=== PATIENT | male | born 1945 | race Caucasian/White ===

== ENCOUNTER 2023-01-18 06:34 | Emergency (ER) | payer OTHER, SELFPAY ==
[2023-01-18] VITALS (109 sets, daily range): BP systolic 105–135; BP diastolic 51–85; PULSE 66–97; RESP 12–33; TEMP 36.7; O2SAT 91–97
--- NOTE | 2023-01-18 07:40 | W.ED.GENAD ---
Discharge Plan Disposition Patient Disposition: Home Discharge Details Clinical Impression: Immunization, tetanus-diphtheria, Thrombocytopenia, Alcohol abuse with intoxication with complication, Macrocytic anemia, Hypomagnesemia, Hypernatremia, First degree AV block, Infiltrate of upper lobe of left lung present on imaging study Primary Care Provider: Patti,Local ED Provider: Abdon Logan Home Meds and New Rx's Prescriptions: New doxycycline hyclate 100 mg capsule 100 mg PO BID Qty: 7 0RF Discharge Instructions Instructions: Abuse of Alcohol (ED) Additional Instructions: You are seen in the emergency department following a fall. Your CAT scan showed no sign of any bleeding in your head. Your chest CT showed concern for a possible pneumonia versus infiltrate in your left upper lung for which you are receiving an antibiotic. As we discussed, there is a possibility that this area could be an early abnormality that is not the result of an infection. Please follow-up with your primary care provider in the next week for reassessment. If you develop worsening shortness of breath or any recurrent falls please return to the emergency department. Your antibiotics have been sent down to help to [facility]. Discharge Data Discharge Date/Time-TO BE ENTERED AT DEPARTURE: 01/18/23 12:16 Medical Decision Making <Patience Rosales DO - Last Filed: 01/18/23 08:22> 77-year-old male visiting family from [place] with history of chronic alcoholism, hypertension, hyperlipidemia, left hip replacement presents after brought in by EMS for multiple falls, some unwitnessed while intoxicated since yesterday. Patient is intoxicated on evaluation. He is nontoxic-appearing. He has a right elbow skin tear but no extremity pain with range of motion or deformity. His chest and abdomen are nontender. He has no midline spinal tenderness. He has no obvious focal deficits. Differential diagnosis includes multiple falls in the setting of intoxication, encephalopathy, dehydration, electrolyte abnormality, UTI. Will obtain screening labs and CT head, cervical spine, chest abdomen and pelvis with thoracic and lumbar recons to rule out any acute trauma as he has had unwitnessed falls. Temperature not yet recorded, will obtain. Will give fluid bolus, Boostrix. The initial EMS report had indicated suicidal ideation. Per discussion with ex- in the ED, she reported that patient must be suicidal if he is drinking that much . Ex- and son report that patient has never expressed suicidal ideation and patient denies this at this time. Patient initially was placed in paper clothes which were removed and he was placed in a gown. Case endorsed oncoming provider to follow-up on labs and imaging and final disposition. Discussed with family that if work-up negative, they feel comfortable taking him home and driving him to [place]. Discussed that he will need follow-up with PCP and potential referral to student success coach or rehab. Medical Records Medical records reviewed: Yes I reviewed the patient's medical records. HPI <Patience Rosales DO - Last Filed: 01/18/23 08:22> General Mode of arrival: ambulatory. Date/Time Provider Initiated Documentation: 01/18/23 06:50. Limitations to Documentation: no limitations. Information obtained by: patient. HPI Narrative: Patient is a 77-year-old male with a history of chronic alcoholism, hypertension, hyperlipidemia with left hip replacement presents after family called EMS for multiple falls today while intoxicated. Patient's ex- and his son John reports that patient drove here from [place] where he lives on Tuesday to visit. They state he has a chronic alcoholic and has been drinking all weekend. Patient reports that he had 2 beers and 3 ounces of vodka since last night but family suspects he has had much more. He had been staying at a B near them but stayed with his son John in [place] last night. Patient's son reports that patient had an unwitnessed fall yesterday and EMS was called to the home where patient was evaluated but not brought to the ED. Family reports that they are also concerned about his left hip as he had a hip replacement 2 years ago and they want to make sure it is okay. Patient denies any hip pain at this time. When asked patient why he is here today he states I don't know . Family is unsure of his regular medications but reports that they think he is on a blood pressure and cholesterol medication. They do not think he is on any blood thinners. On phone call with family from [place] while in the ED, they reported that patient drinks possibly half bottle of whiskey and a few beers daily. Patient denies any acute symptoms of headache, dizziness, chest pain, difficulty breathing, abdominal pain, extremity pain. Related Data Home Medications Medication Instructions Recorded Confirmed doxycycline hyclate 100 mg capsule 100 mg PO BID #7 caps 01/18/23 Previous Rx's Medication Instructions Recorded doxycycline hyclate 100 mg capsule 100 mg PO BID #7 caps 01/18/23 General Stated Complaint: PsychEval MASOUD: 2 Review of Systems <Patience Rosales DO - Last Filed: 01/18/23 08:22> All systems reviewed & are unremarkable except as noted in HPI and below Constitutional Constitutional: Reports as per HPI, Denies chills and Denies fever(s) Eyes Eyes: Denies blurry vision ENT Ears, Nose, Mouth, and Throat: Denies dizziness, Denies sore throat and Denies throat swelling Cardiovascular Cardiovascular: Denies chest pain and Denies dyspnea Respiratory Respiratory: Denies cough and Denies dyspnea Gastrointestinal Gastrointestinal: Denies abdominal pain, Denies diarrhea and Denies vomiting Genitourinary Genitourinary: Denies hematuria and Denies dysuria Musculoskeletal Musculoskeletal: Denies back pain and Denies numbness Integumentary/Breasts Skin/Breast: Denies lesions and Denies rash Neurologic Neurologic: Denies dizziness, Denies localized weakness and Denies numbness Allergic/Immunologic Allergic/Immunologic: Denies throat swelling PFSH <Patience Rosales DO - Last Filed: 01/18/23 08:22> All Active Problems (Updated 01/18/23 @ 11:32 by Abdon Logan MD) Immunization, tetanus-diphtheria (Acute) Thrombocytopenia (Chronic) Alcohol abuse with intoxication with complication (Acute) Macrocytic anemia (Acute) Hypomagnesemia (Acute) Hypernatremia (Acute) First degree AV block (Acute) Infiltrate of upper lobe of left lung present on imaging study (Acute) Medical History (Updated 01/18/23 @ 11:32 by Abdon Logan MD) Dysphagia Esophageal stricture HTN (hypertension) Hx of hyperlipidemia Surgical History (Updated 01/18/23 @ 08:06 by Patience Rosales DO) History of hip replacement Social History Smoking/Tobacco Use Status: Never Smoking risk assessment performed?: Yes Alcohol Intake: current Alcohol Intake frequency: 3 or more drinks per day Alcohol type: beer Drug use: Never Substance use type: does not use Do you feel safe at home: Yes Do you feel safe in your relationship?: Yes Additional Social history: Pt lives in [facility], has been visiting family in [place] for quite some time Exam <Patience Rosales DO - Last Filed: 01/18/23 08:22> Const General: cooperative, no acute distress and intoxicated appearing Orientation: alert, awake and oriented x3 HENMT Head: normal to inspection Face and sinus: normal facial exam Eyes General: appearance normal, both eyes and all related structures Pupils: PERRL EOM: EOM intact bilaterally Neck Neck: normal visual inspection and No submandibular swelling Lymphatic: no lymphadenopathy noted Chest Chest: normal inspection of the chest and no tenderness Resp Effort & Inspection: normal respiratory effort and able to speak in complete sentences Auscultation: clear to auscultation bilaterally Cardio Rate: regular rate Rhythm: regular rhythm GI Inspection: normal to inspection Palpation: soft, not firm, not rigid and nontender Auscultation: hypoactive bowel sounds Male General Exam: Yes normal external exam Back/Spine/Pelvis Cervical Spine: No cervical spinal tenderness Thoracic/Lumbar Spine: thoracic and lumbar spine normal to inspection, No thoracic spinal tenderness and No lumbar spinal tenderness Pelvis: no pain with anterior-posterior compression Skin General skin exam: no rashes or lesions noted Neuro General: patient alert, patient awake, moves all extremities and no meningeal signs Cognition: normal cognition Speech: abnormal speech slurred (Intoxicated appearing) Motor: muscle tone normal throughout Sensory Exam: no sensory deficits noted Extrem General: normal to inspection and full ROM Shoulder/upper arm images: 1. 3 cm skin tear. Bleeding controlled. Surrounding ecchymosis. Other: Full range of motion of bilateral upper and lower extremities without evidence of deformity or significant pain. No pain in right elbow with range of motion. Psych Appearance: grossly normal Mental Status: mental status grossly normal Speech and Movement: speech and movement normal Affect: normal affect Course <Patience Rosales, - Last Filed: 01/18/23 08:22> Vital Signs Vital signs: Vital Signs Pulse 97 H 01/18/23 06:33 Respiratory Rate 20 01/18/23 06:33 Blood Pressure 135/85 01/18/23 06:33 Pulse Oximetry 97 01/18/23 06:33 Pulse 97 H 01/18/23 06:33 Respiratory Rate 20 01/18/23 06:33 Respiratory Effort Normal, Non-Labored 01/18/23 06:42 Blood Pressure 135/85 01/18/23 06:33 Blood Pressure Position Sitting 01/18/23 06:33 Pulse Oximetry 97 01/18/23 06:33 Oxygen Delivery Method Room Air 01/18/23 06:33 Oxygen Flow Rate 0 01/18/23 06:33 Pain Level 3 01/18/23 06:33 Sign Out <Patience Rosales DO - Last Filed: 01/18/23 08:22> Sign Out Data: Sign Out Comment: Patient visiting family from [place]. Brought in by EMS after family called for multiple falls, some unwitnessed, while intoxicated. Follow-up on labs and imaging. If work-up negative, family will drive patient home to [place] and arrange for follow-up with PCP and potential rehab. Last updated by Patience Rosales DO at 01/18/23 07:55 PAWSS <Patience Rosales DO - Last Filed: 01/18/23 08:22> Have you Been Recently Intoxicated or Drunk Within the Last 30 days?: Yes Have you Ever Experienced Previous Episodes of Alcohol Withdrawal?: Yes Have you ever Experienced Withdrawal Seizures?: No Have you ever Experienced Delirium Tremens(DT)s?: Yes Have you ever undergone Alcohol Rehabilitation Treatment (i.e, inpt ot outpatient treatment programs)?: No Have you ever Experienced Blackouts?: Yes Have you ever Combined Alcohol with other Downers within the last 90 days?: Unable to Obtain Have you ever Combined Alcohol with any other Substance of Abuse during the last 90 days?: Unable to Obtain Positive Blood Alcohol level on Presentation? [PCS.BAL]: Unable to Obtain Evidence of Increased Autonomic Activity (i.e. HR>120, tremor, sweating, agitation, nausea)?: No Result: 4 <Abdon Logan MD - Last Filed: 01/23/23 18:57> Result: 4
--- NOTE | 2023-01-18 07:45 | DI.CT_ITS ---
Exam(s) CT CHEST/ABD/PEL W EXAM: CT CHEST/ABD/PEL W CLINICAL HISTORY: s/p fall, r/o acute fx/acute abd abnormality. TECHNIQUE: Imaging Protocol: Axial computed tomography images with coronal and sagittal reformatted images were created and reviewed CONTRAST MATERIAL: Intravenous: Omnipaque 350 Contrast volume:100 ml Oral: None COMPARISON: No exams were available for comparison FINDINGS: CHEST: LUNGS: There is scarring in both lung apices, more so on the left. Also calcified granulomas noted i n the lung sarmiento.. In the anterior segment left upper lobe there is a 1.5 x 1.2 cm nodular infiltra te evident. No other focal infiltrates in the upper lobe. With some mild infiltrate in the left low er lobe. Calcified granulomas noted in left lung base. Also mild infiltrate in the left lung base. No pleural effusions. In the opposite-right lung are no significant focal findings. Also no pleural fluid. MEDIASTINUM: There is no hilar nor mediastinal adenopathy. No sternal fracture or mediastinal hematom a. Thyroid appears unremarkable. CARDIAC: Heart size is normal. There is no pericardial effusion.Caliber of the thoracic aorta is wit hin normal limits. OSSEOUS: There are healed bilateral rib fractures. No obvious acute appearing rib fractures. No herman tebral fractures evident.. ABDOMEN: There is no ascites. LIVER: Liver is hypodense implying steatosis. No discrete focal hepatic lesions identified. GALLBLADDER/BILIARY: Gallbladder is blurred by motion artifact. Subtle density in the fundus of the gallbladder may represent polyp or small calculi. There is no obvious gallbladder wall edema. CBD i s not dilated. PANCREAS: Blurred by motion artifact but no obvious mass. No ductal dilatation. SPLEEN: Spleen is not enlarged. There are no intrasplenic lesions. No laceration. Splenic and lillian l veins are patent. ADRENALS: There is a small nodular density in the genu of the left adrenal gland measuring approximat sarita 9 x 9 mm. Possibly exaggerated by motion artifact. KIDNEYS: No calculi nor hydronephrosis. No solid renal masses. No evidence of renal laceration or sub capsular hematoma. No cysts evident. ABDOMINAL AORTA: Abdominal aorta is not enlarged. LYMPH NODES: There is no retroperitoneal nor paraaortic adenopathy. ABDOMINAL WALL: No evidence of significant anterior abdominal wall nor inguinal hernia. GI: There is no evidence of bowel obstruction.No free air. No evidence of mesenteric nor bowel wall hematoma. PELVIS: LYMPH NODES: There is no intrapelvic nor inguinal adenopathy. GI: No evidence of appendicitis.There is extensive sigmoid diverticulosis. No obvious acute divertic ulitis. URINARY BLADDER: No calculi nor masses evident REPRODUCTIVE: Prostate size normal. OSSEOUS: Left hip prosthesis. No obvious fractures. No significant osseous lesions. IMPRESSION: 1. No significant acute trauma sequelae in the chest, abdomen, and pelvis. 2. There is an area of focal infiltrate in the anterior segment of the left upper lobe measuring 1.5 x 1.2 cm. There is also some mild infiltrate in the left lung base posterior basal segment. No pleu ral effusions. There are benign calcified granulomas both lung sarmiento. 3. Healed bilateral rib fractures. No acute fractures evident. 4. Small densities in the gallbladder fundus which may be polyps or calculi. No obvious evidence of acute cholecystitis. CBD is not dilated. 5. There is extensive sigmoid diverticulosis but no evidence of acute diverticulitis. Left hip prosthesis noted. No pelvic fractures Report called by myself to ER physician. RADIATION DOSE DELIVERED: 1454.01 mGy.cm Total DLP DATA REPOSITORY: All CT scans at this facility are submitted to the National Radiology Data Registry (NRDR) Dose Index Registry (DIR) with the [employer] (A[employer]). RADIATION OPTIMIZATION: All CT scans at this facility use at least one of these dose optimization te chniques: automated exposure control; mA and/or kV adjustment per patient size (includes targeted exa ms where dose is matched to clinical indication); or iterative reconstruction.
--- NOTE | 2023-01-18 07:45 | DI.CT_ITS ---
Exam(s) CT HEAD CERVICAL SPINE WO EXAM: CT HEAD CERVICAL SPINE WO CLINICAL HISTORY: falls, intoxication, r/o bleed/fx. TECHNIQUE: Imaging Protocol: Axial computed tomography images with coronal and sagittal reformatted images were created and reviewed COMPARISON: No exams were available for comparison FINDINGS: BRAIN: There are no skull fractures nor fluid in the visualized paranasal sinuses. There is no evidence of intracranial hemorrhage, mass effect, or shift of midline structures. There are no extra-axial fluid collections. The ventricles are not enlarged or shifted and there is no blo od within the ventricular system nor within the basal cisterns. No periventricular hypodensity consistent with chronic small vessel disease. CERVICAL SPINE: There is no evidence of acute fracture nor listhesis. No significant prevertebral soft tissue swelli ng. There chronic advanced multilevel disc space narrowing. There is facet arthropathy at multiple level s no facet malalignment. There is no significant facet joint malalignment. No significant osseous lesions evident. IMPRESSION: No acute intracranial findings on this noninfused CT scan of the brain.Chronic small-vessel white mat ter ischemic changes. No hemorrhage. Chronic degenerative cervical spine changes but no evidence of cervical spine fracture, malalignment, nor acute compromise of the cervical spinal canal. Called to ER provider. RADIATION DOSE DELIVERED: 1,315.52mGy.cm Total DLP DATA REPOSITORY: All CT scans at this facility are submitted to the National Radiology Data Registry (NRDR) Dose Index Registry (DIR) with the [employer] (ACR). RADIATION OPTIMIZATION: All CT scans at this facility use at least one of these dose optimization te chniques: automated exposure control; mA and/or kV adjustment per patient size (includes targeted exa ms where dose is matched to clinical indication); or iterative reconstruction.
--- NOTE | 2023-01-18 07:46 | DI.CT_ITS ---
Exam(s) CT THORACIC LUMBAR SPINE REC EXAM: CT THORACIC LUMBAR SPINE REC CLINICAL HISTORY: s/p fall, r/o fx TECHNIQUE: COMPARISON: CT CT CHEST/ABD/PEL W from 01/18/2023 FINDINGS: CT THORACIC SPINAL COLUMN: No evidence fractures nor listhesis. Facet joints unremarkable. No facet malalignment. Multilevel disc space narrowing. LUMBOSACRAL SPINAL COLUMN: No evidence of acute fracture or listhesis. Multilevel disc space narrowi ng at the lower 3 levels. No facet joint fractures nor malalignment evident. No obvious sacral frac tures. No coccyx fractures. IMPRESSION: No evidence of acute fractures in the thoracic and lumbar spinal columns. Listhesis. No facet malal ignment. No acute compromise of the spinal canal.
[2023-01-18] MEDS: Normal Saline 1,000 ML 1000 ML IV (07:52)
[2023-01-18 08:08] LABS: Abs Immature Grans 0.02 10^3/uL (0.0-0.06); Absolute Basophil Count 0.03 10^3/uL (0.0-0.2); Absolute Eosinophil Count 0.09 10^3/uL (0.0-0.7); Absolute Lymphocyte Count 1.45 10^3/uL (1.2-3.4); Absolute Monocyte Count 0.73 10^3/uL (0.1-0.8); Absolute Neutrophil Count 3.21 10^3/uL (1.2-6.7); Basophils % 0.5; Eosinophils % 1.6; HCT 39.9 % (40.0-50.0); HGB 13.1 g/dL (13.5-17.5); Immature Grans % 0.4; Lymphocytes % 26.2; MCH 34.5 pg (27.0-33.0); MCHC 32.8 % (32.0-36.0); MCV 105 fL (80-95); MPV 9.6 fL (8.0-11.0); Monocytes % 13.2; Neutrophils % 58.1; Platelet Count 110 10^3/uL (130-400); RDW 13.4 % (11.8-14.1); RDW-SD 51.4 fL; WBC 5.53 10^3/uL (4.4-10.8)
--- NOTE | 2023-01-18 08:13 | W.EDPROG ---
Date of service: 01/18/23 Time of Service: 08:14 Medical Decision Making I received signout on this 77-year-old male with a history of alcohol abuse visiting locally from [place]. He was drinking alcohol last night. He was attempting to get into the car and he fell. He is pending a pepe scan, and ECG and reassessment for clinical sobriety. There was initially a note about suicidal ideation but patient denied suicidal ideation. Given a skin tear will update his tetanus status. 8:22 AM Labs significant for thrombocytopenia and mild macrocytic anemia. No leukocytosis. 9:35 AM Negative troponin. Ethanol returned markedly elevated at 416 mg/dL. Urine drug screen negative. Comprehensive metabolic panel with mild anion gap and mild hyperglycemia but not consistent with DKA. Mildly elevated LFTs. Normal creatinine. Mild hypernatremia. Mild hypomagnesemia. For which patient will receive IV repletion. Lipase not consistent with pancreatitis. Urinalysis with trace ketones but nitrite and leukoesterase negative. No hematuria. [address] head and cervical spine negative.ECG showing narrow complex normal sinus rhythm at a rate of 87 with first-degree AV block and a GA interval of 200 ms. Mildly prolonged QTc at [address] segment abnormalities. T wave flattening in aVL. Low voltage. 11:[address] scan patient was found to have local infiltrate in his left upper lobe. We treat with doxycycline for community-acquired pneumonia. We will have health community cultural development officer Chau reach out to case management to have primary care follow-up with patient as it is certainly possible that these infiltrates could represent an early malignancy based on the patient's age. I met with the patient and explain the CT findings. Pt's son will help him return home. 9:58pm Pt ambulated & tolerated po in the ED. He was discharged with his son. Sign Out Sign Out Data: Sign Out Comment: Patient visiting family from [place]. Brought in by EMS after family called for multiple falls, some unwitnessed, while intoxicated. Follow-up on labs and imaging. If work-up negative, family will drive patient home to [place] and arrange for follow-up with PCP and potential rehab. Last updated by Patience Rosales DO at 01/18/23 07:55 Discharge Plan Disposition Patient Disposition: Home Discharge Details Clinical Impression: Immunization, tetanus-diphtheria, Thrombocytopenia, Alcohol abuse with intoxication with complication, Macrocytic anemia, Hypomagnesemia, Hypernatremia, First degree AV block, Infiltrate of upper lobe of left lung present on imaging study Primary Care Provider: Patti,Local ED Provider: Abdon Logan [place] Meds and New Rx's Prescriptions: New doxycycline hyclate 100 mg capsule 100 mg PO BID Qty: 7 0RF Discharge Instructions Instructions: Abuse of Alcohol (ED) Additional Instructions: You are seen in the emergency department following a fall. Your CAT scan showed no sign of any bleeding in your head. Your chest CT showed concern for a possible pneumonia versus infiltrate in your left upper lung for which you are receiving an antibiotic. As we discussed, there is a possibility that this area could be an early abnormality that is not the result of an infection. Please follow-up with your primary care provider in the next week for reassessment. If you develop worsening shortness of breath or any recurrent falls please return to the emergency department. Your antibiotics have been sent down to help to [facility]. Discharge Data Discharge Date/Time-TO BE ENTERED AT DEPARTURE: 01/18/23 12:16
--- NOTE | 2023-01-18 08:15 | RT.EKG_ITS ---
APPROVED REPORT Exam: Resting ECG Reason for Exam: sob Patient Location: E HR:87 bpm ECG Measurements Heart Rate 87 AXIS FL 200 P 59 QRSd 97 QRS -2 QT 409 T 48 QTc 492 Conclusion Sinus rhythm...normal P axis, V-rate 60- 99 Low voltage, extremity leads...all extremity leads <0.5mV Narrow complex normal sinus rhythm at a rate of 87 with first-degree AV block and a FL interval of 20 0 ms. Mildly prolonged QTc at [address] segment abnormalities. T wave flattening in aVL. Low voltage. No prior for comparison.
[2023-01-18] MEDS: Normal Saline - Diluent 50 ML VIAL IJ (08:21)
[2023-01-18] MEDS: Omnipaque 350 MG/ML 500 ML BTL-Imaging package 100 ML IJ (08:22)
[2023-01-18 08:26] LABS: ALT 14 U/L (16-63); AST 30 U/L (15-37); Albumin 3.4 g/dL (3.4-5.0); Alkaline Phosphatase 124 U/L (46-116); Anion Gap 12.1 mmol/L (3-11); BUN 8 mg/dL (7-18); Bilirubin, Total 0.5 mg/dL (0.2-1.0); CO2 29.9 mmol/L (21.0-32.0); CREATININE 0.7 mg/dL (0.70-1.30); Calcium 8.7 mg/dL (8.5-10.1); Chloride 106 mmol/L (98-107); Estimated GFR 95.49 (mL/min/1.73m2); Glucose 112 mg/dL (74-106); Lipase 74 U/L (16-77); Magnesium 1.4 mg/dL (1.8-2.4); Potassium 3.9 mmol/L (3.5-5.1); Sodium 148 mmol/L (136-145); Total Protein 7.8 g/dL (6.4-8.2); Troponin I < 50 ng/L (<or=60)
[2023-01-18 08:28] LABS: ETHANOL BLOOD 416.1 mg/dL (<10)
[2023-01-18 08:54] LABS: Bilirubin Negative (Negative); Blood Negative (Negative); Clarity Clear (Clear); Glucose Negative (Negative); Ketones Trace mg/dL (Negative); Leukocyte Esterase Negative (Negative); Nitrite Negative (Negative); pH 5.5 (5-8)
[2023-01-18 09:07] LABS: *AMPHETAMINES SCREEN URINE Negative (Negative); *BARBITURATES SCREEN URINE Negative (Negative); *BENZODIAZEPINES SCREEN URINE Negative (Negative); Cannabinoids THC Negative (Negative); Cocaine Screen,Urine Negative (Negative); METHADONE URINE SCREEN Negative (Negative); OPIATES URINE SCREEN Negative (Negative); Tricyclic Antidepressants Negative (Negative)
--- OUTSIDE RECORDS SUMMARY | 2023-01-18 10:06 | XMS_ITS | Continuity of Care Document ---
Author Name [facility] Address [address] [place] [address] Organization [facility] Address [address] [place] [address] Support Name Relationship Address Phone Kaylin Mandujano Primary Care Provider [address] [place] [address] Ruben Menendez Attending Provider [facility] [address], [address] [place] [address] Allergies, Adverse Reactions, Alerts No known allergies. Medications Active Medications Medication Dose Units Route Sig Qty Days Start Date St atus Acetaminophen [Tylenol] 650 MG PO EVERY 4 HOURS UT N For Mild Pain (1-3) December 05, 2018 Active Bisacodyl Suppository [Dulcolax Suppository] 10 MG UT DAILY PRN For 2n d agent for Constipation October 25, 2019 Active Docusate Sodium [Colace] 100 MG PO TWICE A DAY October 25, 2019 Active Sodium Phos Enema 133 ML UT DAILY P RN For 3rd agent for Constipation October 25, 2019 Active Magnesium Hydroxide [Milk Of Magnesia] 30 ML PO DAILY PRN For 1st agent for Constipation October 25, 2019 Active Oxycodone [Roxicodone] 5 MG PO EVERY 4 HOURS UT N For Moderate Pain (4-6) 15 October 25, 2019 Active Pantoprazole [Protonix] 40 MG PO DAILY@0630 October 25, 2019 Active Discontinued Medications Medication Dose Units Route Sig Qty Days Start Date Discontinued Date Status Acetaminophen [Tylenol] 325 MG PO EVERY 4 HOURS PRN For Mild Pain (1-3) August 22, 2018 December 05, 2018 Discontinued Erythromycin Ophth Oint [Ilotycin Ophth Oint] 1 APPL EACH EYE TWICE A DAY 1 5 August 22, 2018 December 05, 2018 Discontinued Folic Acid [Folate] 1 MG PO DAILY August 22, 2018 October 01, 2019 Discontinued Magnesium Oxide [Mag-Ox 400] 400 MG PO TWICE A DAY 0 August 22, 2018 October 01, 2019 Discontinued Multivitamin 1 TAB PO DAILY AugOctober 01, 2019 Discontinued Oxycodone [Roxicodone] 5 MG PO EVERY 4 HOURS PRN For Moderate Pain (4-6) 6 1 August 22, 2018 December 05, 2018 Discontinued Thiamine [Vitamin B1] 100 MG PO DAILY Decemb2017December 05, 2018 Discontinued Tramadol [Ultram] 50 MG PO ONCE DAILY AT BEDTIME December 05, 2018 October 01, 2019 Discontinued Celecoxib [Celebrex] 50 MG PO DAILY December 12, 2018 October 01, 2019 Discontinued Problem List Active Problems Medical Problem Onset Date Status Left thigh pain Active Sprain of left hip Active Macrocytic anemia Active Femur fracture Active Tuberculosis Active Hematuria Active Alcohol abuse Active Fall from standing Active Alcohol withdrawal Active Anemia Active Sinus tachycardia Active Conjunctivitis Active Dysphagia Active Leg fracture, left Active Gait disturbance Active Arthritis of left hip Active DJD (degenerative joint disease) Active Proteinuria Active Thrombocytopenia Active 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 Advance Directives Advance Directive Response Recorded Date/ Time Pt has Medical Orders for Li fe Sustaining Tx Form (MOLST)? No October 24, 2019 9:19pm Chief Complaint and Reason for Visit Encounter Admit Date Chief Complaint Reason for V isit Departed Clinical February 19, 2020 11:25am [facility] Discharge Instructions No known hospital discharge instructions. Hospital Discharge Medications Medication Dose Units Route Sig Qty Days Order Date Status Instructions Acetaminophen 325 MG PO EVERY 4 HOURS PRN For Mild Pain (1-3) August 22, 2018 Discontinued Erythromycin Ophth Oint 1 APPL EACH EYE TWICE A DAY 1 5 August 22, 2018 Discontinued Folic Acid 1 MG PO DAILY Dece2017 Discontinued Magnesium Oxide 400 MG PO TWICE A DAY 0 August 22, 2018 Discontinued Multivitamin 1 TAB PO DAILY Aug Discontinued Oxycodone 5 MG PO EVERY 4 HOURS PRN For Moderate Pain (4-6) 6 1 August 22, 2018 Discontinued Thiamine 100 MG PO DAILY Decembe r 2017 Discontinued Acetaminophen 650 MG PO EVERY 4 HOURS PRN For Mild Pain (1-3) December 05, 2018 Active Tramadol 50 MG PO ONCE DAILY AT BEDTIME December 05, 2018 Discontinued Celecoxib 50 MG PO DAILY December 12, 2018 Discontinued Bisacodyl Suppository 10 MG UT DAILY PRN For 2nd agent for Constipati on October 25, 2019 Active Docusate Sodium 100 MG PO TWICE A DAY October 25, 2019 Active Sodium Phos Enema 133 ML UT DAILY PRN For 3rd agent for Constipati on October 25, 2019 Active Magnesium Hydroxide 30 ML PO DAILY PRN For 1st agent for Constipati on October 25, 2019 Active Oxycodone 5 MG PO EVERY 4 HOURS PRN For Moderate Pain (4-6) 15 October 25, 2019 Active Pantoprazole 40 MG PO DAILY@0630 October 25, 2019 Active Encounters Encounter Facility Location Admit/Visit Date Discharge/Departure Date Attending Provider Departed Clinical [facility] February 19, 2020 11:25am February 19, 2020 11:26am Ruben Menendez Discharged Inpatient [facility] Acute Care Unit October 24, 2019 10:26pm October 25, 2019 1:50pm Codie Mcghee Functional Status No known functional status. Immunizations No known immunizations. Payers Payer Name Policy Type Covered Alliance Party Covered Alliance Party Id Relationship Subscriber Subscriber Id [facility] - Secondary Other NIK MELCHOR [id number] Self / Same As Patient NIK MELCHOR [id number] Aetna Medicare Advantage Commercial NIK MELCHOR [id number] Self / Same As Patient NIK MELCHOR [id number] Medicare A&B Medicare Primary NIK MELCHOR [id number] Self / Same As Patient NIK MELCHOR [id number] Self Pay Personal Payment (Menjivar - No Insurance) Other Facility Personal Payment (Menjivar - No Insurance) NIK MELCHOR [phone] Self / Same As Patient NIK MELCHOR [phone] Plan of Care No Known Plan of Care Information Social History Query Response Date Recorded Comment Lives With Sibling(s) October 25, 2019 5:59am Query Response Start Date Stop Date Smoking Status Former smoker Vital Signs No known vital signs results.
--- OUTSIDE RECORDS SUMMARY | 2023-01-18 10:06 | XMS_ITS | Continuity of Care Document ---
Author Name [facility] Address [address] [place] [address] Organization [facility] Address [address] [place] [address] Support Name Relationship Address Phone Nazia, Kaylin Primary Care Provider [address] [place] [address] Rafita Romero Emergency Provider Unknown Maryvai Codie Angeles Admit Provider [facility] [address] [place] [address] Codie Mcghee Attending Provider [facility] [address] [place] [address] Allergies, Adverse Reactions, Alerts No known allergies. Medications Active Medications Medication Dose Units Route Sig Qty Days Start Date St atus Acetaminophen [Tylenol] 650 MG PO EVERY 4 HOURS OK N For Mild Pain (1-3) December 05, 2018 Active Bisacodyl Suppository [Dulcolax Suppository] 10 MG OK DAILY PRN For 2n d agent for Constipation October 25, 2019 Active Docusate Sodium [Colace] 100 MG PO TWICE A DAY October 25, 2019 Active Sodium Phos Enema 133 ML OK DAILY P RN For 3rd agent for Constipation October 25, 2019 Active Magnesium Hydroxide [Milk Of Magnesia] 30 ML PO DAILY PRN For 1st agent for Constipation October 25, 2019 Active Oxycodone [Roxicodone] 5 MG PO EVERY 4 HOURS OK N For Moderate Pain (4-6) 15 October [...] 2019 Discontinued Multivitamin 1 TAB PO DAILY Dec ember 2017October 01, 2019 Discontinued Oxycodone [Roxicodone] 5 MG PO EVERY 4 HOURS PRN For Moderate Pain (4-6) 6 1 August 22, 2018 December 05, 2018 Discontinued Thiamine [Vitamin B1] 100 MG PO DAILY Decembe r 2017December 05, 2018 Discontinued Tramadol [Ultram] 50 MG [...] Hypokalemia Resolved Procedures Procedure Date Status XR hip pelvis LT min 2V October 24, 2019 comple levi EKG ED Electrocardiogram October 24, 2019 activ e EKG Electrocardiogram October 04, 2019 completed XR femur LT 2V October 02, 2019 completed Urine Culture October 01, 2019 completed XR hip pelvis LT min 2V October 01, 2019 complet ed Relevant Diagnostic Tests and/or Laboratory Data Laboratory Results Test Date/Time Result Interp. Ref. Range Result Co mment Add-On Test Request October 03, 2019 12:11am Added test White Blood Count October 25, 2019 6:00am 7.0 X10 3/uL 4.5-11.0 Red Blood Count October 25, 2019 6:00am 3.36 X10 6/uL Low 4.00-5.50 Hemoglobin October 25, 2019 6:00am 11.7 g/dl Low 12.0-17.0 Hematocrit October 25, 2019 6:00am 35.3 % 35.0-50.0 Mean Corpuscular Volume October 25, 2019 6:00am 105.1 fl High 80.0-100.0 Mean Corpuscular Hemoglobin October 25, 2019 6:00am 34.8 pg High 27.0-34.0 Mean Corpuscular Hemoglobin Concent October 25, 2019 6:00am 33.1 g/dl 31.0-36.0 Red Cell Distribution Width October 25, 2019 6:00am 11.6 % 11.5-15.0 Platelet Count October 25, 2019 6:00am 132 X10 3/uL Low 150-400 Immature Granulocyte % (Auto) October 25, 2019 6:00am 0.3 % Neutrophils (%) (Auto) October 25, 2019 6:00am 59.3 % Lymphocytes (%) (Auto) October 25, 2019 6:00am 21.1 % Monocytes (%) (Auto) October 25, 2019 6:00am 16.6 % Eosinophils (%) (Auto) October 25, 2019 6:00am 2.0 % Basophils (%) (Auto) October 25, 2019 6:00am 0.7 % Immature Granulocyte # (Auto) October 25, 2019 6:00am 0.02 X10 3/uL 0.00-0.09 Neutrophils # (Auto) October 25, 2019 6:00am 4.1 X10 3/uL 1.5-7.8 Lymphocytes # (Auto) October 25, 2019 6:00am 1.5 X10 3/uL 1.0-4.8 Monocytes # (Auto) October 25, 2019 6:00am 1.2 X10 3/uL High 0.0-0.8 Eosinophils # (Auto) October 25, 2019 6:00am 0.1 X10 3/uL 0.0-0.5 Basophils # (Auto) October 25, 2019 6:00am 0.1 X10 3/uL 0.0-0.2 Hemoglobin A1c October 25, 2019 6:00am 5.1 4.3-5.9 Estimated Average Glucose (eAG) October 25, 2019 6:00am 100 mg/dl Nucleated Red Blood Cells % October 25, 2019 6:00am 0.0 /100 WBC 0.0-0.0 Prothrombin Time October 25, 2019 6:00am 14.0 SEC 11.7-14.7 Prothromb Time International Ratio October 25, 2019 6:00am 1.1 Suggested INR targets for patients on Warfarin therapy. INDICATION TARGET INR -DVT or PE, Atrial Fibrillation 2.0 to 3.0 -Valvular disease(varies depending on 2.0 to 3.0 or location of valve, type of valve, and 2.5 to 3.5 risk factors). REFERENCE: The Seventh ACCP Conference on Antithrombotic and Thromblytic Therapy; evidence-based guidelines. Chest 2004; 126(Suppl); 163S-696S. Urine Color October 24, 2019 10:50pm Isa Urine Clarity October 24, 2019 10:50pm Clear Urine pH October 24, 2019 10:50pm 6.0 5.0-8.0 Urine Specific [place] October 24, 2019 10:50pm 1.020 1.003-1.03 0 Urine Blood October 24, 2019 10:50pm Negative mg/dl Urine Protein October 24, 2019 10:50pm Negative mg/dl Urine Glucose (UA) October 24, 2019 10:50pm Negative mg/dl Urine Ketones October 24, 2019 10:50pm Moderate mg/dl High Urine Nitrate October 24, 2019 10:50pm Negative Urine Bilirubin October 24, 2019 10:50pm Negative mg/dl Urine Urobilinogen October 24, 2019 10:50pm 4.0 mg/dl High Urine Leukocyte Esterase October 24, 2019 10:50pm Negative Urine Microscopic Indicated October 01, 2019 5:05pm . Urine RBC October 01, 2019 5:05pm 0 /hpf 0-2 Urine WBC October 01, 2019 5:05pm 7 /hpf High 0-5 Urine Squamous Epithelial Cells October 01, 2019 5:05pm 2 /hpf 0-5 Urine Bacteria October 01, 2019 5:05pm Few /hpf High Urine Mucus October 01, 2019 5:05pm Present /lpf High Sodium Level October 25, 2019 6:00am 141 mmol/L 137-146 Potassium Level October 25, 2019 6:00am 4.0 mmol/L 3.5-5.3 Chloride Level October 25, 2019 6:00am 103 mmol/L 98-107 Carbon Dioxide Level October 25, 2019 6:00am 25 mmol/L 23-32 Anion Gap October 25, 2019 6:00am 13 mmol/L 5-15 Blood Urea Nitrogen October 25, 2019 6:00am 8 mg/dl 5-25 Creatinine October 25, 2019 6:00am 0.6 mg/dL 0.6-1.4 Estimated Creatinine Clearance October 25, 2019 6:00am 92.4 ml/min This value is calculated by Cockcroft Gault Equation using ideal body weight. This result is dependent on an accurate patient height and weight which is obtained from patients medical record." Cockbetitooft, D.W. and M.H. Gault. Prediction of creatinine clearance from serum creatinine. Nephron. 1976. 16(1):31-41. Estimated GFR () October 25, 2019 6:00am > 60 60- Estimated GFR (Non- October 25, 2019 6:00am > 60 60- BUN/Creatinine Ratio October 25, 2019 6:00am 13.3 10.0-20.0 Glucose Level October 25, 2019 6:00am 113 mg/dL High 70-100 Calcium Level October 25, 2019 6:00am 8.7 mg/dl 8.6-10.3 Magnesium Level October 24, 2019 5:23pm 1.5 mg/dL Low 1.8-2.5 Total Bilirubin October 01, 2019 2:51pm 1.0 mg/dl Direct Bilirubin October 01, 2019 2:51pm 0.5 mg/dl Aspartate Amino Transf (AST/SGOT) October 01, 2019 2:51pm 31 U/L 15-41 Alanine Aminotransferase (ALT/SGPT) October 01, 2019 2:51pm 11 U/L Low 14-63 Total Protein October 01, 2019 2:51pm 7.3 g/dL 6.4-8.3 Albumin October 01, 2019 2:51pm 4.0 g/dl 4.0-5.0 Albumin/Globulin Ratio October 01, 2019 2:51pm 1.2 1.0-2.6 Alkaline Phosphatase October 01, 2019 2:51pm 89 U/L 40-129 Lipase October 02, 2019 6:00am 17 U/L 13-60 Serum Alcohol October 24, 2019 5:23pm < 10 mg/dl Microbiology Results Procedure Source Result Collection Date/Time Resu lt Date/Time Urine Culture Urine,Clean Catch No results entered October 01, 2019 5:16pm Advance Directives Advance Directive Response Recorded Date/ Time Advance Directives Yes October 25, 2019 11:04am Health Care Proxy No October 25 020 11:04am Chief Complaint and Reason for Visit Encounter Admit Date Chief Complaint Reason for V isit Discharged Inpatient October 24, 2019 10:26pm FRACTURE OF LEFT FEMUR DVT prophylaxis Fall from standing Femur fracture Fracture of left femur Frequent falls Metabolic acidosis Hospital Discharge Instructions Additional Discharge Instructions TOUGH DOWN WEIGHT BEARING. Instruction/Education Provided FOLLOW UP WITH DR. SANTOYO ON 11/01/19 AT 10:30 AM. TYLENOL NEEDED FOR PAIN. OXYCODONE NEEDED FOR PAIN. STOOL SOFTENER TO PREVENT CONSTIPATION. RETURN TO THE EMERGENCY DEPARTMENT IF SYMPTOMS WORSEN. Hospital Discharge Medications Medication Dose Units Route Sig Qty Days Order Date Status Instructions Acetaminophen 325 MG PO EVERY 4 HOURS PRN For Mild Pain (1-3) August 22, 2018 Discontinued Erythromycin Ophth Oint 1 APPL EACH EYE TWICE A DAY 1 5 August 22, 2018 Discontinued Folic Acid 1 MG PO DAILY Decem antonia 2017 Discontinued Magnesium Oxide 400 MG PO TWICE A DAY 0 August 22, 2018 Discontinued Multivitamin 1 TAB PO DAILY Dec ember 2017 Discontinued Oxycodone 5 MG PO EVERY 4 [...] 12, 2018 Discontinued Bisacodyl Suppository 10 MG OK DAILY PRN For 2nd agent for Constipati on October 25, 2019 Active Docusate Sodium 100 MG PO TWICE A DAY October 25, 2019 Active Sodium Phos Enema 133 ML OK DAILY PRN For 3rd agent for Constipati [...] Location Admit/Visit Date Discharge/Departure Date Attending Provider Discharged Inpatient [facility] Acute Care Unit October 24, 2019 10:26pm October 25, 2019 1:50pm Codie Mcghee Discharged Inpatient [facility] Acute Care Unit October 02, 2019 9:09am October 05, 2019 1:00pm Brown Pate Encounter Diagnosis Onset Date DVT prophylaxis Fall from standing Femur fracture Fracture of left femur Frequent falls Metabolic acidosis Functional Status Query Response Date Recorded Comment Arousable To Name October 25, 2019 12:21pm Comprehension Ability Understands Concepts October 12:21pm Level of Consciousness Awake Alert Appropriate October 25, 2019 12:21pm Patient Behavior Appropriate Cooperative October 25, 2019 12:21pm Query Response Date Recorded Comment Ambulation Distance 30 October 03, 2019 4:12 pm Ambulation Tolerance Poor October 05, 2019 7:3 0am Assistive Devices Cane October 25, 2019 2:19a m Bathing Type Sponge Bath October 25, 2019 1:00pm Date of Last Bowel Movement 10/24/19 October 25, 2019 12:21pm Oral Care Teeth Brushing Mouth Rinse October 05, 2019 1:49am Immunizations No known immunizations. Payers Payer Name Policy Type Covered Democrat Covered Democrat Id Relationship Subscriber Subscriber Id Health Safety Net - Secondary Other NIK MELCHOR [id number] Self / Same As Patient NIK MELCHOR [id number] Aetna Medicare Advantage Commercial NIK MELCHOR [id number] Self / Same As Patient NIK MELCHOR [id number] Medicare A&B Medicare Primary NIK MELCHOR [id number] Self / Same As Patient NIK MELCHOR [id number] Self Pay Personal Payment (Menjivar - No Insurance) Other Facility Personal Payment (Menjivar - No Insurance) NIK MELCHOR [phone] Self / Same As Patient NIK MELCHOR [phone] Plan of Care Instructions FOLLOW UP WITH DR. YARELIS Ferreira 11/01/19 AT 10:30 AM. TYLENOL NEEDED FOR PAIN. OXYCODONE NEEDED FOR PAIN. STOOL SOFTENER TO PREVENT CONSTIPATION. RETURN TO THE EMERGENCY DEPARTMENT IF SYMPTOMS WORSEN. Social History Query Response Date Recorded Comment Is Anyone Dependent on your Care? No October 02, 2019 5:04pm Living Situation Private Home October 25, 2019 10:59a m Marital Status October 25, 2019 10:59am Query Response Start Date Stop Date Smoking Status Former smoker Vital Signs Vital Reading Result Reference Range Collection Date/Time Height 1.88 m October 25 2:19am Weight 79.4 kg October 25 2:19am Temperature 98.6 F 97.6 F-99.6 F October 25 020 11:34am Pulse 75 BPM 60-90 October 25 11:34am Respiration 18 RPM 12-October 25 11:34am Pulse Oximetry 99 % 95-100 October 25, 2019 11:34am Blood Pressure Systolic 157 90-140 Febr [facility] 2019 11:34am Blood Pressure Diastolic 94 60-90 Fe [place] 2019 11:34am Body Mass Index 22.5 October 25, 2019 2:19am
--- OUTSIDE RECORDS SUMMARY | 2023-01-18 10:06 | XMS_ITS | Continuity of Care Document ---
Author Name [facility] Address [address] [place] [address] Organization [facility] Address [address] [place] [address] Support Name Relationship Address Phone Nazia, Kaylin Primary Care Provider [address] [place] [address] Rafita Romero Emergency Provider Unknown Maryvai Codie Angeles Admit Provider [facility] [address] [place] [address] Codie Mcghee Attending Provider [facility] [address] [place] [address] Allergies, Adverse Reactions, Alerts No known allergies. Medications Active Medications Medication Dose Units Route Sig Qty Days Start Date St atus Acetaminophen [Tylenol] 650 MG PO EVERY 4 HOURS MD N For Mild Pain (1-3) December 05, 2018 Active Bisacodyl Suppository [Dulcolax Suppository] 10 MG MD DAILY PRN For 2n d agent for Constipation October 25, 2019 Active Docusate Sodium [Colace] 100 MG PO TWICE A DAY October 25, 2019 Active Sodium Phos Enema 133 ML MD DAILY P RN For 3rd agent for Constipation October 25, 2019 Active Magnesium Hydroxide [Milk Of Magnesia] 30 ML PO DAILY PRN For 1st agent for Constipation October 25, 2019 Active Oxycodone [Roxicodone] 5 MG PO EVERY 4 HOURS MD N For Moderate Pain (4-6) 15 October [...] 24, 2019 10:50pm 6.0 5.0-8.0 Urine Specific [place] October 24, 2019 10:50pm 1.020 1.003-1.03 0 [...] 12, 2018 Discontinued Bisacodyl Suppository 10 MG MD DAILY PRN For 2nd agent for Constipati on October 25, 2019 Active Docusate Sodium 100 MG PO TWICE A DAY October 25, 2019 Active Sodium Phos Enema 133 ML MD DAILY PRN For 3rd agent for Constipati [...] Date Discharge/Departure Date Attending Provider Discharged Inpatient [facility] Acute Care Unit October 24, 2019 10:26pm October 25, 2019 1:50pm Codie Mcghee Discharged Inpatient [facility] Acute [facility] Unit October 02, 2019 [...] immunizations. Payers Payer Name Policy Type Covered Libertarian Covered Libertarian Id Relationship Subscriber Subscriber Id Health [employer] - Secondary Other NIK MELCHOR [id number] Self / Same As Patient NIK MELCHOR [id number] Aetna Medicare Advantage Commercial NIK MELCHOR [id number] Self / Same As Patient NIK MELCHOR [id number] Medicare A&B Medicare Primary NIK MELCHOR [id number] Self / Same As Patient NIK MELCHOR [id number] Self Pay Personal Payment (Menjivar - No Insurance) Other Facility Personal Payment (Menjivar - No Insurance) NIK MELCHOR [phone] Self / Same As Patient NIK MELCHOR [phone] Plan of Care Instructions FOLLOW UP WITH [...] 11:34am Blood Pressure Systolic 157 90-140 Febr [facility] 2019 11:34am Blood Pressure Diastolic 94 60-90 Fe [place] 2019 11:34am Body Mass Index 22.5 October 25, 2019 2:19am
--- OUTSIDE RECORDS SUMMARY | 2023-01-18 10:06 | XMS_ITS | Continuity of Care Document ---
Author Name [facility] Address [address] [place] [address] Organization [facility] Address [address] [place] [address] Support Name Relationship Address Phone Kaylin Mandujano Primary Care Provider [address] [place], [place] [id number] Kaylin Mandujano Attending Provider [address] [place], [place] [id number] Allergies, Adverse Reactions, Alerts No known allergies. Medications Active Medications Medication Dose Units Route Sig Qty Days Start Date St atus Acetaminophen [Tylenol] 650 MG PO EVERY 4 HOURS [place] N For Mild Pain (1-3) December 05, 2018 Active Bisacodyl Suppository [Dulcolax Suppository] 10 MG [place] DAILY PRN For 2n d agent for Constipation October 25, 2019 Active Docusate Sodium [Colace] 100 MG PO TWICE A DAY October 25, 2019 Active Sodium Phos Enema 133 ML [place] DAILY P RN For 3rd agent for Constipation October 25, 2019 Active Magnesium Hydroxide [Milk Of Magnesia] 30 ML PO DAILY PRN For 1st agent for Constipation October 25, 2019 Active Oxycodone [Roxicodone] 5 MG PO EVERY 4 HOURS [place] N For Moderate Pain (4-6) 15 October [...] Discontinued Multivitamin 1 TAB PO DAILY Dec emb2017October 01, 2019 Discontinued Oxycodone [Roxicodone] 5 MG [...] ompleted Relevant Diagnostic Tests and/or Laboratory Data Laboratory Results Test Date/Time Result Interp. Ref. Range Result Co mment White Blood Count March 19, 2020 9:39am 5.1 X10 3/uL 4.5-11.0 Red Blood Count March 19, 2020 9:39am 3.53 X10 6/uL Low 4.00-5.50 Hemoglobin March 19, 2020 9:39am 12.3 g/dl 12.0-17.0 Hematocrit March 19, 2020 9:39am 38.3 % 35.0-50.0 Mean Corpuscular Volume March 19, 2020 9:39am 108.5 fl High 80.0-100.0 Mean Corpuscular Hemoglobin March 19, 2020 9:39am 34.8 pg High 27.0-34.0 Mean Corpuscular Hemoglobin Concent March 19, 2020 9:39am 32.1 g/dl 31.0-36.0 Red Cell Distribution Width March 19, 2020 9:39am 12.3 % 11.5-15.0 Platelet Count March 19, 2020 9:39am 97 X10 3/uL Low 150-400 Immature Granulocyte % (Auto) March 19, 2020 9:39am 0.4 % Neutrophils (%) (Auto) March 19, 2020 9:39am 56.6 % Lymphocytes (%) (Auto) March 19, 2020 9:39am 24.6 % Monocytes (%) (Auto) March 19, 2020 9:39am 13.9 % Eosinophils (%) (Auto) March 19, 2020 9:39am 4.1 % Basophils (%) (Auto) March 19, 2020 9:39am 0.4 % Immature Granulocyte # (Auto) March 19, 2020 9:39am 0.02 X10 3/uL 0.00-0.09 Neutrophils # (Auto) March 19, 2020 9:39am 2.9 X10 3/uL 1.5-7.8 Lymphocytes # (Auto) March 19, 2020 9:39am 1.3 X10 3/uL 1.0-4.8 Monocytes # (Auto) March 19, 2020 9:39am 0.7 X10 3/uL 0.0-0.8 Eosinophils # (Auto) March 19, 2020 9:39am 0.2 X10 3/uL 0.0-0.5 Basophils # (Auto) March 19, 2020 9:39am 0.0 X10 3/uL 0.0-0.2 Nucleated Red Blood Cells % March 19, 2020 9:39am 0.0 /100 WBC 0.0-0.0 Sodium Level March 19, 2020 9:39am 141 mmol/L 137-146 Potassium Level March 19, 2020 9:39am 4.2 mmol/L 3.5-5.3 Chloride Level March 19, 2020 9:39am 107 mmol/L 98-107 Carbon Dioxide Level March 19, 2020 9:39am 20 mmol/L Low 23-32 Anion Gap March 19, 2020 9:39am 14 mmol/L 5-15 Blood Urea Nitrogen March 19, 2020 9:39am 11 mg/dl 5-25 Creatinine March 19, 2020 9:39am 0.7 mg/dL 0.6-1.4 Estimated Creatinine Clearance March 19, 2020 9:39am Horse Breeder Unable to Calculate CRCL,Ht and/or Wt missing Estimated GFR () March 19, 2020 9:39am > 60 60- Estimated GFR (Non- March 19, 2020 9:39am > 60 60- BUN/Creatinine Ratio March 19, 2020 9:39am 15.7 10.0-20.0 Glucose Level March 19, 2020 9:39am 136 mg/dL High 70-100 Calcium Level March 19, 2020 9:39am 8.9 mg/dl 8.6-10.3 Total Bilirubin March 19, 2020 9:39am 0.6 mg/dl Aspartate Amino Transf (AST/SGOT) March 19, 2020 9:39am 33 U/L 15-41 Specimen hemolyzed, results affected, evaluate with caution. Alanine Aminotransferase (ALT/SGPT) March 19, 2020 9:39am 11 U/L Low 14-63 Total Protein March 19, 2020 9:39am 6.7 g/dL 6.4-8.3 Albumin March 19, 2020 9:39am 3.6 g/dl Low 4.0-5.0 Albumin/Globulin Ratio March 19, 2020 9:39am 1.2 1.0-2.6 Triglycerides Level March 19, 2020 9:39am 40 mg/dL <=150 mg/dL = Desirable Cholesterol Level March 19, 2020 9:39am 129 mg/dl <200 mg/dL = Desirable LDL Cholesterol, Calculated March 19, 2020 9:39am 43 mg/dl HDL Cholesterol March 19, 2020 9:39am 78 mg/dL 40- < 40 mg/dl: Low HDL-cholesterol (major risk factor for CHD) >/= 60 mg/dl: High HDL-cholesterol (negative risk factor for CHD) HDL-cholesterol is affected by a number of factors, e.g., smoking, excercise, hormones, sex and age. Cholesterol Ratio (LDL/HDL) March 19, 2020 9:39am 0.6 LDL/HDL Interpretation: Ratio Men Women 1/2 Average 1.00 1.47 Average 3.55 3.22 2X Average 6.25 5.03 3X Average 7.99 6.14 Cholesterol/HDL Ratio March 19, 2020 9:39am 1.7 Cholesterol/HDL Interpretation: Ratio Men Women 1/2 Average 3.43 3.27 Average 4.97 4.44 2X Average 9.55 7.05 3X Average 23.39 11.04 Alkaline Phosphatase March 19, 2020 9:39am 72 U/L 40-129 Vitamin B12 Level March 19, 2020 9:39am 342 pg/ml 232-1245 Folate March 19, 2020 9:39am > 20.0 ng/ml 4.0- Chief Complaint and Reason for Visit Encounter Admit Date Chief Complaint Reason for V isit Departed Clinical March 19, 2020 9:27am SEE ORDER Hospital Discharge Instructions No known hospital discharge [...] Discontinued Multivitamin 1 TAB PO DAILY Dec 2017 Discontinued Oxycodone 5 MG PO EVERY [...] 12, 2018 Discontinued Bisacodyl Suppository 10 MG MI DAILY PRN For 2nd agent for Constipati on October 25, 2019 Active Docusate Sodium 100 MG PO TWICE A DAY October 25, 2019 Active Sodium Phos Enema 133 ML [place] DAILY PRN For 3rd agent for Constipati [...] Admit/Visit Date Discharge/Departure Date Attending Provider Departed [facility] Laboratory March 19, 2020 9:27am March 19, 2020 9:28am Kaylin Mandujano Departed [facility] Xray February 19, 2020 11:25am February 19, 2020 11:26am Ruben Menendez Functional Status No known functional status. Immunizations No known immunizations. Plan of Care No Known Plan of Care Information Social History No known social history. Vital Signs No known vital signs results.
--- OUTSIDE RECORDS SUMMARY | 2023-01-18 10:06 | XMS_ITS | Continuity of Care Document ---
Author Name [facility] Address [address] [place] [address] Organization [facility] Address [address] [place] [address] Support Name Relationship Address Phone Nazia, Kaylin Primary Care Provider [address] [place] [address] Rafita Romero Emergency Provider Unknown Maryvai Codie Angeles Admit Provider [facility] [address] [place] [address] Codie Mcghee Attending Provider [facility] [address] [place] [address] Allergies, Adverse Reactions, Alerts No known allergies. Medications Active Medications Medication Dose Units Route Sig Qty Days Start Date St atus Acetaminophen [Tylenol] 650 MG PO EVERY 4 HOURS [place] N For Mild Pain (1-3) December 05, 2018 Active Bisacodyl Suppository [Dulcolax Suppository] 10 MG [place] DAILY PRN For 2n d agent for Constipation October 25, 2019 Active Docusate Sodium [Colace] 100 MG PO TWICE A DAY October 25, 2019 Active Sodium Phos Enema 133 ML [place] DAILY P RN For 3rd agent for Constipation October 25, 2019 Active Magnesium Hydroxide [Milk Of Magnesia] 30 ML PO DAILY PRN For 1st agent for Constipation October 25, 2019 Active Oxycodone [Roxicodone] 5 MG PO EVERY 4 HOURS [place] N For Moderate Pain (4-6) 15 October [...] 24, 2019 10:50pm 6.0 5.0-8.0 Urine Specific [place] October 24, 2019 10:50pm 1.020 1.003-1.03 0 [...] 12, 2018 Discontinued Bisacodyl Suppository 10 MG [place] DAILY PRN For 2nd agent for Constipati on October 25, 2019 Active Docusate Sodium 100 MG PO TWICE A DAY October 25, 2019 Active Sodium Phos Enema 133 ML [place] DAILY PRN For 3rd agent for Constipati [...] Date Discharge/Departure Date Attending Provider Discharged Inpatient [facility] October 24, 2019 10:26pm October 25, 2019 1:50pm Codie Mcghee Discharged Inpatient [facility] Acute Care Unit October 02, 2019 9:09am [...] immunizations. Payers Payer Name Policy Type Covered Republican Covered Republican Id Relationship Subscriber Subscriber Id Health Safety Net - Secondary Other NIK MELCHOR [id number] Self / Same As Patient NIK MELCHOR [id number] A[employer] Medicare Advantage Commercial NIK MELCHOR [id number] Self / Same As Patient NIK MELCHOR [id number] Medicare A&B Medicare Primary NIK MELCHOR [id number] Self / Same As Patient NIK MELCHOR [id number] Self Pay Personal Payment (Menjivar - No Insurance) Other Facility Personal Payment (Menjivar - No Insurance) NIK MELCHOR [phone] Self / Same As Patient NIK MELCHOR [phone] Plan of Care Instructions FOLLOW UP WITH [...] 11:34am Blood Pressure Systolic 157 90-140 Febr [place] 2019 11:34am Blood Pressure Diastolic 94 60-90 Fe [place] 2019 11:34am Body Mass Index 22.5 October 25, 2019 2:19am
--- OUTSIDE RECORDS SUMMARY | 2023-01-18 10:06 | XMS_ITS | Clinical Summary ---
Author Name Unknown Address [address] [place] [address] Phone Organization [facility] Address [address] [place] [address] Phone Care Team Providers Care Community Service Technician Name Role Phone Ron Mendes MD [phone] Conditions or Problems Problem Name Problem Code Onset Date Status Entry Date Provider Comment Standard Description Annotate UNSPECIFIED FRACTURE OF UPPER END OF LEFT HUMERUS, INITIAL ENCOUNTER FOR CLOSED FRACTURE S42.202A (ICD-10-C M) Inactive Ron Mendes MD Unspecified fracture of upper end of left humerus, initial encounter for closed fracture surgical neck Medications Medication Instructions Start Date Stop Date Generic Name NDC Provider HYDROCODONE-BRENDEN TAMINOPHEN 5-325 MG TABS take 1-2 tabs every 4-6 hours as needed for pain HYDROCODONE -ACETAMINOP HEN [id number] Ron Mendes MD HYDROCODONE-BRENDEN TAMINOPHEN 5-325 MG TABS take 1-2 tabs every 4-6 hours as needed for pain HYDROCODONE -ACETAMINOP HEN [phone] Ron Mendes MD HYDROCODONE-BRENDEN TAMINOPHEN 5-325 MG TABS take 1-2 tabs every 4-6 hours as needed for pain HYDROCODONE -ACETAMINOP HEN [phone] Ron Mendes MD Medications Administered No information available. Allergies, Adverse Reactions, Alerts No information available. Results No information available. Plan of Care No information available. Procedures Code Procedure Name Date Entry Date [id number] Patient encounter procedure [id number] Patient encounter procedure [id number] Patient encounter procedure [id number] Patient encounter procedure [id number] Patient encounter procedure [id number] Patient encounter procedure [id number] Patient encounter procedure [id number] Patient encounter procedure Vital Signs No information available. Immunizations No information available. Advance Directives No information available.
--- OUTSIDE RECORDS SUMMARY | 2023-01-18 10:07 | XMS_ITS | Continuity of Care Document ---
Author Name Unknown Address [address] [place] [address] Phone [facility] Address [address] [place] [address] Phone Care Team Providers Care Cutting And Boning Supervisor Name Role Phone MD Kaylin Mandujano Primary Care Provider MD Kaylin Mandujano Family Provider MD Catarino Mary Attending Provider [phone] Chief Complaint and Reason for Visit Chief Complaint L KNEE PAIN AND WEAK NESS R/O MMT Allergies, Adverse Reactions, Alerts No known allergies Social History Smoking Status Status Start Date End Date Date of Observa tion Ex-smoker (finding) October 25, 2019 5:59am Observation Status Observation Response Date of Response Lives With Sibling(s) October 25 5:59am Additional Data Assigned Sex Male Family History Relationship Condition Age at Onset Recorded Date/T [place] father Malignant neoplasm Unknown Problems Active Problems Medical Problem Onset Date Status [...] Problems Medical Problem Onset Date Status Varicocele Resolved Scrotal pain Resolved Tachycardia Resolved Hypokalemia Resolved Medications Medication Status Dose Units Route Directions Qty Days St art Date End Date Instructions Acetaminophen Discontin ued 325 MG PO EVERY 4 HOURS [facility] 2017 2:11pm December 05, 2018 12:37p m Thiamine Hcl (Vitamin B1) (Vitamin B-1) 100 MG Tablet Discontin ued 100 MG PO DAILY [facility] 2017 2:11pm December 05, 2018 12:35p m Magnesium Oxide Discontin ued 400 MG PO TWICE A DAY 0 [facility] 2017 2:11pm 2019 11:57a m Erythromycin Discontin ued 1 APPL EACH EYE TWICE A DAY 1 5 [facility] 2017 2:11pm December 05, 2018 12:36p m Folic Acid Discontin ued 1 MG PO DAILY [facility] 2017 2:11pm 2019 11:57a m Oxycodone Discontin ued 5 MG PO EVERY 4 HOURS 6 1 [facility] 2017 2:11pm December 05, 2018 12:34p m Multivitamin With Folic Acid (Thera) 1 TAB Tablet Discontin ued 1 TAB PO DAILY [facility] 2017 2:11pm 2019 11:57a m Acetaminophen Active 650 MG PO EVERY 4 HOURS December 05, 2018 12:36pm Tramadol Discontin ued 50 MG PO ONCE DAILY AT BEDTIME December 05, 2018 12:37pm 2019 11:57a m Celecoxib (Celebrex) 50 MG Capsule Discontin ued 50 MG PO DAILY December 12, 2018 7:06am 2019 11:57a m Magnesium Hydroxide Active 30 ML PO DAILY 2019 10:45am Bisacodyl Active 10 MG [place] DAILY 2019 10:45am Pantoprazole Active 40 MG PO DAILY@0630 2019 10:45am Sodium Phosphates (Enema Disposable) 133 ML enema Active 133 ML [place] DAILY 2019 10:45am Docusate Sodium (Dok) 100 MG capsule Active 100 MG PO TWICE A DAY 2019 10:45am Oxycodone Active 5 MG PO EVERY 4 HOURS 15 2019 10:45am Medical Equipment Device Date Implanted Device Details [id number] SECUR-FIT MAX December 12, 2018 36MM/-[id number] C-TAPER BIOLO December 12, 2018 INSERT ACTB 36MM TRDNT 10D H December 12, 2018 SCREW BONE 16MM 6.5MM TRDNT December 12, 2018 SHELL ACTB 62MM TR PSL H HIP December 12, 2018 Procedures Procedure Date Performed Status MR knee LT wo con July 28, 2021 3:30pm act gisselle Advance Directives Advance Directive Response Recorded Date/ Time Pt has Medical Orders for Li fe Sustaining Tx Form (MOLST)? No October 24, 2019 9:19pm Insurance Providers Guarantor Nik Mathew Address [address] [facility] [address] Contact Info. Home Phone: Payer Policy Id Coverage Id Subscriber's Name Subscriber Id Effective Date Expiration Date Health Safety Net - Secondary [id number] Nik Mathew [id number] A[employer] Medicare Advantage [id number] Nik Mathew [id number] Medicare A&B [id number] Nik Mathew [id number] Self Pay Self N/A Other Facility [phone] Nik Mathew [phone] Encounters Encounter Location(s) Arrival/Admit Date Discharge/Depart Date Provider(s) Departed Clinical [facility] July 28, 2021 2:56pm July 28, 2021 2:57pm Catarino Mary MD
--- OUTSIDE RECORDS SUMMARY | 2023-01-18 10:07 | XMS_ITS | Continuity of Care Document ---
Author Name Unknown Address [address] [place] [address] Phone [facility] Address [address] [place] [address] Phone Support Name Relationship Address Phone EILEEN HIGGINS Sister [address] [place] [address] Kaylin Mandujano Primary Care Provider [address] [place] [address] Rd [address] [place] [address] Gemma, [place] [address] Allergies, Adverse Reactions, Alerts No known allergies. Medications Medication Status Dose Units Route Sig Qty Days Start Date End Date Instructions Acetaminophen (Tylenol) 325 MG Tablet Discontinu ed 325 MG PO EVERY 4 HOURS August 22, 2018 2:11pm December 05, 2018 1:37pm Erythromycin Ophth Oint (Ilotycin Ophth Oint) 1 APPL/GM Oint Discontinu ed 1 APPL EACH EYE TWICE A DAY 1 5 August 22, 2018 2:11pm December 05, 2018 1:36pm Folic Acid (Folate) 1 MG Tablet Discontinu ed 1 MG PO DAILY August 22, 2018 2:11pm October 01, 2019 11:57am Magnesium Oxide (Mag-Ox 400) 400 MG Tablet Discontinu ed 400 MG PO TWICE A DAY 0 August 22, 2018 2:11pm October 01, 2019 11:57am Multivitamin Discontinu ed 1 TAB PO DAILY August 22, 2018 2:11pm October 01, 2019 11:57am Oxycodone (Roxicodone) 5 MG Tablet Discontinu ed 5 MG PO EVERY 4 HOURS 6 1 August 22, 2018 2:11pm December 05, 2018 1:34pm Thiamine (Vitamin B1) 100 MG Tablet Discontinu ed 100 MG PO DAILY August 22, 2018 2:11pm December 05, 2018 1:35pm Acetaminophen (Tylenol) 325 MG Tablet Active 650 MG PO EVERY 4 HOURS December 05, 2018 1:36pm Tramadol (Ultram) 50 MG Tablet Discontinu ed 50 MG PO ONCE DAILY AT BEDTIME December 05, 2018 1:37pm October 01, 2019 11:57am Celecoxib (Celebrex) 50 MG Capsule Discontinu ed 50 MG PO DAILY December 12, 2018 8:06am October 01, 2019 11:57am Bisacodyl Suppository (Dulcolax Suppository) 10 MG Supp Active 10 MG LA DAILY October 25, 2019 10:45am Docusate Sodium (Colace) 100 MG Capsule Active 100 MG PO TWICE A DAY October 25, 2019 10:45am Sodium Phos Enema Active 133 ML LA DAILY October 25, 2019 10:45am Magnesium Hydroxide (Milk Of Magnesia) 30 ML Udl Active 30 ML PO DAILY October 25, 2019 10:45am Oxycodone (Roxicodone) 5 MG Tablet Active 5 MG PO EVERY 4 HOURS 15 October 25, 2019 10:45am Pantoprazole (Protonix) 40 MG Tabdr Active 40 MG PO DAILY@0 630 October 25, 2019 10:45am Problems Active Problems Medical Problem Onset Date [...] Scrotal pain Resolved Tachycardia Resolved Hypokalemia Resolved Procedures Procedure Date Performed Status XR barium swallow (esophagram) February 19, 2020 9: 55am completed Relevant Diagnostic Tests and/or Laboratory Data Laboratory Results Test Date/Time Result Interpretation Reference Range Result Comment Performing Site White Blood Count March 19, 2020 9:39am 5.1 X10 3/uL 4.5-11.0 [facility], [address] [facility] [address] Red Blood Count March 19, 2020 9:39am 3.53 X10 6/uL 4.00-5.50 [facility], [address] [place] [address] Hemoglobin March 19, 2020 9:39am 12.3 g/dl 12.0-17.0 [facility], [address] [place] [address] Hematocrit March 19, 2020 9:39am 38.3 % 35.0-50.0 [facility], [address] [place] [address] Mean Corpuscular Volume March 19, 2020 9:39am 108.5 fl 80.0-100.0 [facility], [address] [facility] [place] [address] Mean Corpuscular Hemoglobin March 19, 2020 9:39am 34.8 pg 27.0-34.0 [facility], [address] [facility] [place] [address] Mean Corpuscular Hemoglobin Concent March 19, 2020 9:39am 32.1 g/dl 31.0-36.0 [facility], [address] [place] [address] Red Cell Distribution Width March 19, 2020 9:39am 12.3 % 11.5-15.0 [facility], [address] [place] [address] Platelet Count March 19, 2020 9:39am 97 X10 3/uL 150-400 [facility], [address] [facility] [place] [address] Immature Granulocyte % (Auto) March 19, 2020 9:39am 0.4 % [facility], [address] [place] [address] Neutrophils (%) (Auto) March 19, 2020 9:39am 56.6 % [facility], [address] [place] [address] Lymphocytes (%) (Auto) March 19, 2020 9:39am 24.6 % [facility], [address] [place] [address] Monocytes (%) (Auto) March 19, 2020 9:39am 13.9 % [facility], [address] [place] [address] Eosinophils (%) (Auto) March 19, 2020 9:39am 4.1 % [facility], [address] [place] [address] Basophils (%) (Auto) March 19, 2020 9:39am 0.4 % [facility], [address] [place] [address] Immature Granulocyte # (Auto) March 19, 2020 9:39am 0.02 X10 3/uL 0.00-0.09 [facility], [address] [facility] [address] Neutrophils # (Auto) March 19, 2020 9:39am 2.9 X10 3/uL 1.5-7.8 [facility], [address] [facility] [address] Lymphocytes # (Auto) March 19, 2020 9:39am 1.3 X10 3/uL 1.0-4.8 [facility], [address] [facility] [address] Monocytes # (Auto) March 19, 2020 9:39am 0.7 X10 3/uL 0.0-0.8 [facility], [address] [facility] [address] Eosinophils # (Auto) March 19, 2020 9:39am 0.2 X10 3/uL 0.0-0.5 [facility], [address] [facility] [address] Basophils # (Auto) March 19, 2020 9:39am 0.0 X10 3/uL 0.0-0.2 [facility], [address] [facility] [address] Nucleated Red Blood Cells % March 19, 2020 9:39am 0.0 /100 WBC 0.0-0.0 [facility], [address] [facility] [address] Sodium Level March 19, 2020 9:39am 141 mmol/L 137-146 [facility], [address] [facility] [address] Potassium Level March 19, 2020 9:39am 4.2 mmol/L 3.5-5.3 [facility], [address] [facility] [address] Chloride Level March 19, 2020 9:39am 107 mmol/L 98-107 [facility], [address] [facility] [address] Carbon Dioxide Level March 19, 2020 9:39am 20 mmol/L 23-32 [facility], [address] [facility] [address] Anion Gap March 19, 2020 9:39am 14 mmol/L 5-15 [facility], [address] [facility] [address] Blood Urea Nitrogen March 19, 2020 9:39am 11 mg/dl 5-25 [facility], [address] [facility] [address] Creatinine March 19, 2020 9:39am 0.7 mg/dL 0.6-1.4 [facility], [address] [facility] [address] Estimated Creatinine Clearance March 19, 2020 9:39am Clothing Sales Assistant Unable to Calculate CRCL,Ht and/or Wt missing [facility], [address] [facility] [address] Estimated GFR () March 19, 2020 9:39am > 60 >60 [facility], [address] [facility] [address] Estimated GFR (Non- March 19, 2020 9:39am > 60 >60 [facility], [address] [facility] [address] BUN/Creatinine Ratio March 19, 2020 9:39am 15.7 10.0-20.0 [facility], [address] [place] [address] Glucose Level March 19, 2020 9:39am 136 mg/dL 70-100 [facility], [address] [place] [address] Calcium Level March 19, 2020 9:39am 8.9 mg/dl 8.6-10.3 [facility], [address] [place] [address] Total Bilirubin March 19, 2020 9:39am 0.6 mg/dl <1.1 [facility], [address] [place] [address] Aspartate Amino Transf (AST/SGOT) March 19, 2020 9:39am 33 U/L 15-41 Specimen hemolyzed, results affected, evaluate with caution. [facility], [address] [place] [address] Alanine Aminotransferase (ALT/SGPT) March 19, 2020 9:39am 11 U/L 14-63 [facility], [address] [place] [address] Total Protein March 19, 2020 9:39am 6.7 g/dL 6.4-8.3 [facility], [address] [place] [address] Albumin March 19, 2020 9:39am 3.6 g/dl 4.0-5.0 [facility], [address] [place] [address] Albumin/Globulin Ratio March 19, 2020 9:39am 1.2 1.0-[address] [address] Triglycerides Level March 19, 2020 9:39am 40 mg/dL <150 <=150 mg/dL = Desirable [facility], [address] [facility] [address] Cholesterol Level March 19, 2020 9:39am 129 mg/dl <200 <200 mg/dL = Desirable [facility], [address] [facility] [address] LDL Cholesterol, Calculated March 19, 2020 9:39am 43 mg/dl <130 [facility], [address] [place] [address] HDL Cholesterol March 19, 2020 9:39am 78 mg/dL >40 < 40 mg/dl: Low HDL-cholest leoncio(major risk factor for CHD)>/= 60 mg/dl: High HDL-cholest leoncio(negati ve risk factor for CHD)HDL-cho lesterol is affected by a number of factors, e.g., smoking, excercise, hormones, sex and age. [facility], [address] [place] [address] Cholesterol Ratio (LDL/HDL) March 19, 2020 9:39am 0.6 LDL/HDL Interpretat ion:Ratio Men Women1/2 Average 1.00 1.47Average 3.55 3.222X Average 6.25 5.033X Average 7.[address] [address] Cholesterol/HDL Ratio March 19, 2020 9:39am 1.7 Cholesterol /HDL Interpretat ion: Ratio Men Women 1/2 Average 3.43 3.27 Average 4.97 4.44 2X Average 9.55 7.05 3X Average 23.[address] [address] Alkaline Phosphatase March 19, 2020 9:39am 72 U/L 40-[address] [address] Vitamin B12 Level March 19, 2020 9:39am 342 pg/ml 232-[address] [address] Folate March 19, 2020 9:39am > 20.0 ng/ml >4.[address] [address] Diagnostic Imaging Reports Report Dictated Date/Time Dictated By Status Radiology Report February 19, 2020 3:22pm Cristina Cortés MD completed [address] [address] Patient Name: Nik Melchor Medical Record#: [id number] Address: [place] City/State/Zip: [place] [address]: Ruben Menendez MD Insurance: t Medicare Ad vantage /Age/Sex: 1945/74/M [facility] - Secondary Admit/Reg Date: 02/19/[address]: Ruben Menendez MD Location: [facility]/ PCP: Kaylin Mandujano MD Date of Service: 02/19/20 Order (s): XR barium swallow (esophagram) CPT Code: 57081 Report Number: [id number] Reason for Exam: DYSPHAGIA EXAM: XR barium swallow (esophagram) REASON FOR STUDY:DYSPHAGIA ADDITIONAL CLINICAL HISTORY: Patient states that he has difficulty swallowing. Feels at times he aspirates. Comparison: 08/22/2018 BARIUM SWALLOW: 38 mGy Findings: The patient was observed swallowing thin and thick liquid barium. There are extensive tertiary esophageal contractions which limited evaluation of the esophagus. No gastroesophageal reflux was demonstrated. There is a diverticulum at the posterior aspect of the upper esophagus located posteriorly, slightly to the right of midline. Contrast pools within it. It is in a location compatible with a Zenker diverticulum. It was also present previously. The patient aspirated a large amount of barium with one of his swallows. There was a cough reflex.There appeared to possibly be small round filling defects in the mid esophagus seen in some of the images. No hiatal hernia was seen. IMPRESSION: ASPIRATION. ZENKER DIVERTICULUM. LIMITED EVALUATION OF THE MID ESOPHAGUS DUE TO ESOPHAGEAL CONTRACTIONS. POSSIBLE SMALL FILLING DEFECTS, POLYPOID MASSES, VERSUS THE APPEARANCE JUST DUE TO CONTRACTIONS. RECOMMEND CLINICAL CORRELATION REGARDING THE NEED FOR UPPER ENDOSCOPY TO DETERMINE WHETHER THERE COULD BE A MASS.. A Yellow message has been communicated to Ruben Menendez MD via the [employer] system on 02/19/2020 3:34 PM, Message ID [id number]. Dictated By: Cristina Cortés MD 02/19/20 1522 Signed By: Cristina Cortés MD 02/19/20 1534 TD/TT: 02/19/20 1522Tech: [id number] cc: MARLENA; ANIA* Kaylin Mandujano MD; Ruben Menendez MD Advance Directives Advance Directive Response Recorded Date/ Time Pt has Medical Orders for Li fe Sustaining Tx Form (MOLST)? No October 24, 2019 9:19pm Chief Complaint and Reason for Visit Chief Complaint ZENKER DIVERTICULAR SEE ORDER Encounters Encounter Location(s) Arrival/Admit Date [facility] February 19, 2020 11:25am February 19, 2020 11:26am Ruben Menendez MD [facility] March 19, 2020 9:27am March 19, 2020 9:28am Kaylin Mandujano MD Assessments No Assessments Information Available Family History Relationship Condition Age at Onset Recorded Date/T sel[place] father Malignant neoplasm Unknown Functional Status No Functional Status information available Goals Goals may be documented in an alternate section. Mental Status No Mental Status Information Available Medical Equipment Implanted Devices Device Date Implanted Device Details [id number] SECUR-FIT MAX December 12, 2018 U DI: 36MM/-2.518-36-3 C-TAPER BIOLO December 12, 2018 U DI: INSERT ACTB 36MM TRDNT 10D H December 12, 2018 KEM : SCREW BONE 16MM 6.5MM TRDNT December 12, 2018 KEM: SHELL ACTB 62MM TR PSL H HIP December 12, 2018 KEM : Insurance Providers Guarantor Nik Melchor Address [address] [place] [id number] Contact Info. Home Phone: Payer Policy Id Coverage Id Subscriber's Name Subscriber Id Effective Date Expiration Date Health Safety Net - Secondary [id number] NIK MELCHOR [id number] [employer] Medicare Advantage [id number] NIK MELCHOR [id number] Medicare A&B [id number] NIK MELCHOR [id number] Self Pay Self N/A Other Facility [phone] NIK MELCHOR [id number] Social History Smoking Status Status Date of Observation Ex-smoker (finding) October 25, 2019 4:59am Observation Status Observation Response Date of Response Lives With Sibling(s) October 25, 2 020 5:59am Assigned Sex Male
--- OUTSIDE RECORDS SUMMARY | 2023-01-18 10:07 | XMS_ITS | Continuity of Care Document ---
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 Role Phone MD [facility] Primary Care Provider [phone] MD [facility] Family Provider MD Tremayne Trent Emergency Provider [email or web address] MD Joce Arreola Attending Provider [phone] Chief Complaint and Reason for Visit Chief Complaint HIP FRACTURE Reason for Visit Contusion of left hi p Hyperlipidemia Hypokalemia Left hip pain Allergies, Adverse Reactions, Alerts No known allergies Social History Smoking Status Status Start Date End Date Date of Observa tion Ex-smoker (finding) October 25, 2019 5:59am Observation Status Observation Response Date of Response Lives With Sibling(s) December 06, 2022 5:45pm Is Anyone Dependent on your Care? No December 06, 2022 5:45pm Living Situation Private Home December 06 5:45pm Additional Data Assigned Sex Male Family History [...] Leg fracture, left Active Gait disturbance Active Hyperlipidemia Active Arthritis of left hip Active DJD (degenerative joint disease) Active Proteinuria Active Thrombocytopenia Active Aftercare following left hip joint replacement s urgery Active Frequent falls Active DVT prophylaxis Active Arm fracture Active Left hip pain Active Metabolic acidosis Active Fracture of left femur Active Falls Active Contusion of left hip Active Hypokalemia Active Hypomagnesemia Active Inactive/Resolved Problems Medical Problem Onset Date Status Varicocele Resolved Scrotal pain Resolved Tachycardia Resolved Hypokalemia Resolved Medications Medication Status Dose Units Route Directions Qty Days St art Date End Date Instructions Acetaminophen Discontin ued 325 MG PO EVERY 4 HOURS [facility] 2017 1:00am December 05, 2018 1:37pm Thiamine Hcl (Vitamin B1) (Vitamin B-1) 100 MG Tablet Discontin ued 100 MG PO DAILY [facility] 2017 1:00am December 05, 2018 1:35pm Magnesium Oxide Discontin ued 400 MG PO TWICE A DAY 0 [facility] 2017 1:00am 2019 12:57p m Erythromycin Discontin ued 1 APPL EACH EYE TWICE A DAY 1 5 [facility]2017 1:00am December 05, 2018 1:36pm Folic Acid Discontin ued 1 MG PO DAILY [facility] 2017 1:00am 2019 12:57p m Oxycodone Discontin ued 5 MG PO EVERY 4 HOURS 6 1 2017 1:00am December 05, 2018 1:34pm Multivitamin With Folic Acid (Thera) 1 TAB Tablet Discontin ued 1 TAB PO DAILY [facility] 2017 1:00am 2019 12:57p m Acetaminophen Discontin ued 650 MG PO EVERY 4 HOURS December 05, 2018 1:36pm December 06, 2022 6:28pm Tramadol Discontin ued 50 MG PO ONCE DAILY AT BEDTIME December 05, 2018 12:00am 2019 12:57p m Celecoxib (Celebrex) 50 MG Capsule Discontin ued 50 MG PO DAILY December 12, 2018 12:00am 2019 12:57p m Magnesium Hydroxide Discontin ued 30 ML PO DAILY 2019 1:00am December 06, 2022 6:29pm Bisacodyl Discontin ued 10 MG AL DAILY 2019 1:00am December 06, 2022 6:28pm Pantoprazole Active 40 MG PO DAILY@0630 2019 1:00am Sodium Phosphates (Enema Disposable) 133 ML enema Discontin ued 133 ML AL DAILY 2019 1:00am December 06, 2022 6:29pm Docusate Sodium (Dok) 100 MG capsule Discontin ued 100 MG PO TWICE A DAY 2019 1:00am December 06, 2022 6:28pm Oxycodone Discontin ued 5 MG PO EVERY 4 HOURS 15 2019December 06, 2022 6:29pm Atorvastatin Active 10 MG PO DAILY Cristino 2022 12:00am Famotidine Active 20 MG PO DAILY December 08, 2022 12:00am Acetaminophen Active 975 MG PO EVERY 8 HOURS December 08, 2022 12:00am Medical Equipment Device Date Implanted Device Details [id number] SECUR-FIT MAX December 12, 2018 36MM/-2.518-36-3 C-TAPER BIOLO December 12, 2018 INSERT ACTB 36MM TRDNT 10D H December 12, 2018 SCREW BONE 16MM 6.5MM TRDNT December 12, 2018 SHELL ACTB 62MM TR PSL H HIP December 12, 2018 Procedures Procedure Date Performed Status CT hip LT wo contrast December 06, 2022 10:25am c ompleted Coronavirus COVID-19 (MADELINE) compl eted Relevant Diagnostic Tests and/or Laboratory Data Laboratory Results Test Date/Time Result Interpretation Reference Range Result Comment Performing Site White Blood Count December 06, 2022 2:08pm 4.8 X10 3/uL 4.5-11.0 [facility] [id number] [address] [facility] [address] Red Blood Count December 06, 2022 2:08pm 3.38 X10 6/uL 4.00-5.50 [facility] [id number] [address] [facility] [address] Hemoglobin December 06, 2022 2:08pm 12.0 g/dl 12.0-17.0 [facility] [id number] [address] [facility] [address] Hematocrit December 06, 2022 2:08pm 37.0 % 35.0-50.0 [facility] [id number] [address] [facility] [address] Mean Corpuscular Volume December 06, 2022 2:08pm 109.5 fl 80.0-100.0 [facility] [id number] [address] [facility] [address] Mean Corpuscular Hemoglobin December 06, 2022 2:08pm 35.5 pg 27.0-34.0 [facility] [id number] [address] [facility] [address] Mean Corpuscular Hemoglobin Concent December 06, 2022 2:08pm 32.4 g/dl 31.0-36.0 [facility] [id number] [address] [facility] [address] Red Cell Distribution Width December 06, 2022 2:08pm 12.1 % 11.5-15.0 [facility] [id number] [address] [facility] [address] Platelet Count December 06, 2022 2:08pm 105 X10 3/uL 150-400 [facility] [id number] 200 [place] [place] [address] Immature Granulocyte % (Auto) December 06, 2022 2:08pm 0.4 % [facility] [id number] [address] [place] [place] [address] Neutrophils (%) (Auto) December 06, 2022 2:08pm 60.0 % [facility] [id number] [address] [facility] [place] [address] Lymphocytes (%) (Auto) December 06, 2022 2:08pm 17.6 % [facility] [id number] [address] [facility] [place] [address] Monocytes (%) (Auto) December 06, 2022 2:08pm 19.3 % [facility] [id number] [address] [place] [address] Eosinophils (%) (Auto) December 06, 2022 2:08pm 2.1 % [facility] [id number] [address] [place] [address] Basophils (%) (Auto) December 06, 2022 2:08pm 0.6 % [facility] [id number] [address] [facility] [address] Immature Granulocyte # (Auto) December 06, 2022 2:08pm 0.02 X10 3/uL 0.00-0.09 [facility] [id number] [address] [facility] [address] Neutrophils # (Auto) December 06, 2022 2:08pm 2.9 X10 3/uL 1.5-7.8 [facility] [id number] [address] [facility] [address] Lymphocytes # (Auto) December 06, 2022 2:08pm 0.8 X10 3/uL 1.0-4.8 [facility] [id number] [address] [facility] [address] Monocytes # (Auto) December 06, 2022 2:08pm 0.9 X10 3/uL 0.0-0.8 [facility] [id number] [address] [facility] [address] Eosinophils # (Auto) December 06, 2022 2:08pm 0.1 X10 3/uL 0.0-0.5 [facility] [id number] [address] [facility] [address] Basophils # (Auto) December 06, 2022 2:08pm 0.0 X10 3/uL 0.0-0.2 [facility] [id number] [address] [facility] [address] Nucleated Red Blood Cells % December 06, 2022 2:08pm 0.0 /100 WBC 0.0-0.0 [facility] [id number] [address] [facility] [address] Sodium Level December 07, 2022 6:39am 141 mmol/L 137-146 [facility] [id number] [address] [facility] [address] Potassium Level December 07, 2022 6:39am 3.2 mmol/L 3.5-5.3 [facility] [id number] [address] [facility] [address] Chloride Level December 07, 2022 6:39am 103 mmol/L 98-107 [facility] [id number] [address] [facility] [address] Carbon Dioxide Level December 07, 2022 6:39am 26 mmol/L 23-32 [facility] [id number] [address] [facility] [address] Anion Gap December 07, 2022 6:39am 12 mmol/L 5-15 [facility] [id number] [address] [facility] [address] Blood Urea Nitrogen December 07, 2022 6:39am 6 mg/dl 5-25 [facility] [id number] [address] [facility] [address] Creatinine December 07, 2022 6:39am 0.5 mg/dL 0.6-1.4 [facility] [id number] [address] [facility] [address] Estimated Creatinine Clearance December 07, 2022 6:39am 90.7 ml/min This value is calculated by Cockcroft Gault Equation using ideal body weight. This result is dependent on an accurate patient height and weight which is obtained from patients medical record. Angeles BanksW. and M.HDane Guerra. Prediction of creatinine clearance from serum creatinine. Nephron. 1976. 16(1):31-41. [facility] [id number] [address] [facility] [address] Estimat Glomerular Filtration Rate December 07, 2022 6:39am 106 >90 Reported eGFR is based on the CKD-EPI 2020 equation that does not use a race coefficient. Additional information can be found at:10-22-8261 _icb_egfr_sum chetna_an5.p df (kidney.org) [facility] [id number] [address] [facility] [address] BUN/Creatinine Ratio December 07, 2022 6:39am 12.0 10.0-20.0 [facility] [id number] [address] [facility] [address] Glucose Level December 07, 2022 6:39am 165 mg/dL 70-100 [facility] [id number] [address] [facility] [address] Calcium Level December 07, 2022 6:39am 9.1 mg/dl 8.6-10.3 [facility] [id number] [address] [facility] [address] Microbiology Results Procedure Source Result Collection Date/Time Result Date/Time Result Comment Performing Site Coronavirus COVID-19 (MADELINE) Nares, Both Left & Right December 07, 2022 11:08am [facility] [id number] [address] [place] [address] Diagnostic Imaging Reports Report Dictated Date/Time Dictated By Status Radiology Report December 06, 2022 12:57pm Abdon becker MD completed [address] [address] Patient Name: Nik Mathew Medical Record#: [id number] Address: [address] [place] [address] City/State/Zip: [place] [address]: Tremayne wolfe MD Insurance: Medicare A&B /Age/Sex: 1945//M [facility] Net - Secondary Admit/Reg Date: 12/06/[address]: Tremayne Trent MD Location: ED.[place]/ PCP: Kaylin Mandujano MD Date of Service: 12/06/22 Order (s): CT hip LT wo contrast CPT Code: 60124 Report Number: [id number] Reason for Exam: fell PROCEDURE: CT hip LT wo contrast REASON FOR EXAM: fell ADDITIONAL CLINICAL HISTORY: Left hip pain after recent fall. COMPARISON: 10/24/2019 TECHNIQUE: Multiple contiguous thin cut axial images were obtained through the left hip. Sagittal and coronal reformatted reconstructed images were also obtained and reviewed. CT dose lowering technique was utilized. 3-D volume rendered MIP type images were also obtained at an independent workstation. FINDINGS: Left hip prosthesis remains completely intact and anatomically aligned. No loosening or hardware failure. No fracture, subluxation, or bony destructive process. No dislocation. No ramus fracture. No surrounding hematoma. No fluid collection or subcutaneous gas. IMPRESSION: NO ACUTE ABNORMALITY IN THE LEFT HIP. THE LEFT HIP REPLACEMENT HARDWARE/PROSTHESIS IS INTACT AND ANATOMICALLY ALIGNED. Dictated By: Abdon Garsia MD 12/06/22 1257 Signed By: Abdon Garsia MD 12/06/22 1314 TD/TT: 12/06/22 1257Tech: [id number] cc: BRADLEY LERMA* Kaylin Mandujano MD; Tremayne Trent MD Vital Signs Vital Reading Result Reference Range Collection Date/Time Height 190.5 cm December 06 5:45pm Weight 81.64 kg December 06 4:31pm Body Temperature 98.1 [degF] 97.6-99.6 December 08, 2022 7:17am Heart Rate 78 /min 60-90 December 08 7:17am Respiratory rate 16 /min 12-24 December 08, 2022 7:17am Oxygen saturation by Pulse oximetry 99 % 95-100 December 08, 2022 9:1 1am BP Systolic 120 mm[Hg] 90-140 December 08 7:17am BP Diastolic 74 mm[Hg] 60-90 December 08 7:17am BMI (Body Mass Index) 22.5 kg/m2 December 06, 2022 10:03am Advance Directives Advance Directive Response Recorded Date/ Time Advance Directives Yes December 06 5:45pm Health Care Proxy No December 06 5:45pm Pt has Medical Orders for Li fe Sustaining Tx Form (MOLST)? No October 24, 2019 10:19pm Insurance Providers Guarantor Nik Mathew Address [address] [place], [place] [address] Contact Info. Home Phone: Payer Policy Id Coverage Id Subscriber's Name Subscriber Id Effective Date Expiration Date Health Safety Net - Secondary [id number] Nik Mathew [id number] [employer] Medicare Advantage [id number] Nik Mathew [id number] Medicare A&B [id number] Nik Mathew [id number] Self Pay Self N/A Other Facility [id number] Nik Matehw [phone] Encounters Encounter Location(s) Arrival/Admit Date Discharge/Depart Date Provider(s) Discharged Inpatient [facility] December 06, 2022 4:31pm December 08, 2022 12:30pm Joce Arreola MD Recent Diagnosis Onset Date Contusion of left hip Hyperlipidemia Hypokalemia Left hip pain Functional Status Observation Response Date Recorded Assistive Devices Cane December 06 5:45pm Walker December 06, 2022 5:45pm Ambulation Distance 5 December 06, 2022 4:50pm Ambulation Tolerance Poor December 06, 2022 4:50pm Bathing Type Self Care December 08, 2022 12:00am Date of Last Bowel Movement 12/05/22 Cristino 2022 9:11am Mental Status Observation Response Date Recorded Arousable To Name December 08, 2022 9:11am Normal for Patient December 08, 2 023 9:11am Patient Behavior Appropriate December 08 9:11am Cooperative December 08, 2022 9:11am Normal for Patient December 08 023 9:11am Comprehension Ability Understands Concepts December 08, 2022 9:11am Level of Consciousness Awake November 9:11am Alert December 08, 2022 9:11am Appropriate December 08, 2022 9:11am Follows Commands December 08 9:11am Assessments Diagnosis Onset Date Resolution Status Contusion of left hip acute Hyperlipidemia acute Hypokalemia acute Left hip pain acute Plan of Treatment Future Tests Future scheduled test information is unavailable Pending Tests Test Name Ordered Date Scheduled Date VTE Risk Assessment Medical December 06, 2022 4:3 1pm December 06, 2022 4:31pm Future Visits Future appointment information is unavailable Referrals to Other Providers Reason for Referral Referral Start Date Provider Provider Contact Information Provider Address Kaylin Mandujano MD Work Phone: [address] [place] [address] [address] [facility] [address] Future Procedures Procedure Name Ordered Date Scheduled Date Hospital Level of Care December 06, 2022 4:31pm M 2022 4:31pm Physical Therapy Consult December 06, 2022 1:29pm December 06, 2022 1:29pm Activity December 06, 2022 4:31pm December 062022 4:31pm Case Management Consult December 06, 2022 1:29pm December 06, 2022 1:29pm Discharge December 08, 2022 11:32am November 112022 11:32am Peripheral IV Insert/Manage December 06, 2022 4:3 1pm December 06, 2022 4:31pm Oxygen Initiate/Maintain December 06, 2022 4:31pm December 06, 2022 4:31pm Patient Preference for Pain Management December 06, 2022 4:31pm December 06, 2022 4:31pm Sequential Compression Device December 06, 2022 4 :31pm December 06, 2022 4:31pm Future Medications Future medication information is unavailable Patient Instructions Patient instructions are unavailable Goals Acute Goals 1. Continue usual medication s You have been started on Tylenol for pain control. Absence of falls Including: - Early & often mobilization when appropriate - Passive/active range of motion as appropriate - toileting schedule implementation - implementation of fall risk interventions Risks from withdrawal minimi zed Recognize the need for isola tion Describe the mode of transmi ssion Absence of infection signs a nd symptoms Patient/Caregiver understands the importance of: - Baseline body temperature - Handwashing and environmental hygiene - Antibiotics compliance Able to achieve maximum mobi lity level Including: - Understands safety - Demonstrates progress in improved mobility - Demonstrates correct use of mobility devices if appropriate - Understands & accepts limitations & plan for progression as appropriate Pt reports/exhibits pain at gabby level Including: - Pain controlled by pharmacological/non-pharmacological means - Establish realistic pain and function goals prior to initiating opioid therapy in patients with chronic pain if applicable - Discuss known risks and realistic benefits of opioid therapy Absence of falls Including: - Early & often mobilization when appropriate - Passive/active range of motion as appropriate - toileting schedule implementation - implementation of fall risk interventions Identify potential risk fact ors * Relates intent to use safety measures * Relates intent to use prevention measures Remain free of injury Understand Management Fede lauren Patient/Caregiver understand: - Pathophysiology - Reportable s/s and when to seek medical care - Treatment plan and post discharge follow up - Medication regime, energy conservation, diet & lifestyle modification Able to achieve maximum mobi lity level Including: - Understands safety - Demonstrates progress in improved mobility - Demonstrates correct use of mobility devices if appropriate - Understands & accepts limitations & plan for progression as appropriate Safely transition to next [facility] of care Patient/family has: - Appropriate access to resources and support services as applicable
--- OUTSIDE RECORDS SUMMARY | 2023-01-18 10:07 | XMS_ITS | Continuity of Care Document ---
Author Name Unknown Address [address] [place] [address] Phone [facility] Address [address] [place] [address] Phone Care Team Providers Care Command Post Craftsman Name Role Phone MD Kaylin Mandujano Primary Care Provider MD Kaylin Mandujano Family Provider MD Catarino Mary Attending Provider Chief Complaint and Reason for Visit Chief Complaint left hip abductor w quad weakness s/p RITA Allergies, Adverse Reactions, Alerts No known allergies [...] ued 325 MG PO EVERY 4 HOURS [facility] 2017 2:11pm December 05, 2018 12:37p m Thiamine Hcl (Vitamin B1) (Vitamin B-1) 100 MG Tablet Discontin ued 100 MG PO DAILY [facility] 2017 2:11pm December 05, 2018 12:35p m Magnesium Oxide Discontin ued 400 MG PO TWICE A DAY 0 [facility] 2017 2:11pm 2019 11:57a m Erythromycin Discontin ued 1 APPL EACH EYE TWICE A DAY 1 5 [facility] 2017 2:pm December 05, 2018 12:36p m Folic Acid Discontin ued 1 MG PO DAILY [facility] 2017 2:11pm 2019 11:57a m Oxycodone Discontin ued 5 MG PO EVERY 4 HOURS 6 1 [facility] 2017 2:pm December 05, 2018 12:34p m Multivitamin With Folic Acid (Thera) 1 TAB Tablet Discontin ued 1 TAB PO DAILY [facility] 2017 2:11pm 2019 11:57a m Acetaminophen Active [...] DAILY 2019 10:45am Bisacodyl Active 10 MG ND DAILY 2019 10:45am Pantoprazole Active 40 MG PO DAILY@0630 2019 10:45am Sodium Phosphates (Enema Disposable) 133 ML enema Active 133 ML ND DAILY 2019 10:45am Docusate Sodium (Dok) 100 MG capsule Active 100 MG PO TWICE A DAY 2019 10:45am Oxycodone Active 5 MG PO EVERY 4 HOURS 15 2019 10:45am Medical Equipment Device Date Implanted Device Details [id number] SECUR-FIT MAX December 12, 2018 36MM/-2.518-36-3 C-TAPER BIOLO December 12, 2018 INSERT ACTB 36MM TRDNT 10D H December 12, 2018 SCREW BONE 16MM 6.5MM TRDNT December 12, 2018 SHELL ACTB 62MM TR PSL H HIP December 12, 2018 Advance Directives Advance Directive Response Recorded Date/ Time Pt has Medical Orders for Li fe Sustaining Tx Form (MOLST)? No October 24, 2019 9:19pm Insurance Providers Guarantor Nik Mathew Address [address] [facility] [address] Contact Info. Home Phone: Payer Policy Id Coverage Id Subscriber's Name Subscriber Id Effective Date Expiration Date Health Safety Net - Secondary [id number] Nik Mathew [id number] [employer] Medicare Advantage [id number] Nik Mathew [id number] Medicare A&B [id number] Nik Mathew [id number] Self Pay Self N/A Other Facility [phone] Nik Mathew [phone] Encounters Encounter Location(s) Arrival/Admit Date Discharge/Depart Date Provider(s) Discharged Recurring [facility] ([place]) August 17, 2021 2:38pm September 11, 2021 11:59pm Catarino Mary MD
--- OUTSIDE RECORDS SUMMARY | 2023-01-18 10:07 | XMS_ITS | Continuity of Care Document ---
Author Name Unknown Address [address] [place] [address] Phone [facility] Address [address] [place] [address] Phone Care Team Providers Care Nutritional Health Coach Name Role Phone MD [facility] Primary Care Provider [phone] MD Naz[facility] Family Provider MD Tremayne Trent Emergency Provider [email or web address] MD Joce Arreola Attending Provider Chief Complaint and Reason for [...] ued 325 MG PO EVERY 4 HOURS [facility] 2017 1:00am December 05, 2018 1:37pm Thiamine Hcl (Vitamin B1) (Vitamin B-1) 100 MG Tablet Discontin ued 100 MG PO DAILY [facility] 2017 1:00am December 05, 2018 1:35pm Magnesium Oxide Discontin ued 400 MG PO TWICE A DAY 0 [facility] 2017 1:00am 2019 12:57p m Erythromycin Discontin ued 1 APPL EACH EYE TWICE A DAY 1 5 [facility]2017 1:00am December 05, 2018 1:36pm Folic Acid Discontin ued 1 MG PO DAILY [facility] 2017 1:00am 2019 12:57p m Oxycodone Discontin ued 5 MG PO EVERY 4 HOURS 6 1 2017 1:00am December 05, 2018 1:34pm Multivitamin With Folic Acid (Thera) 1 TAB Tablet Discontin ued 1 TAB PO DAILY [facility] 2017 1:00am 2019 12:57p m Acetaminophen Discontin [...] 2022 6:29pm Bisacodyl Discontin ued 10 MG MA DAILY 2019 1:00am December 06, 2022 6:28pm Pantoprazole Active 40 MG PO DAILY@0630 2019 1:00am Sodium Phosphates (Enema Disposable) 133 ML enema Discontin ued 133 ML MA DAILY 2019 1:00am December 06, 2022 6:29pm [...] Equipment Device Date Implanted Device Details [id number] SECUR-FIT MAX December 12, 2018 36MM/-2.518-36-3 C-TAPER [...] 06, 2022 2:08pm 4.8 X10 3/uL 4.5-11.0 [facility] [id number] 200 [facility] [address] Red Blood Count December 06, 2022 2:08pm 3.38 X10 6/uL 4.00-5.50 [facility] [id number] [address] [facility] [address] Hemoglobin December 06, 2022 2:08pm 12.0 g/dl 12.0-17.0 [facility] [id number] [address] [facility] [address] Hematocrit December 06, 2022 2:08pm 37.0 % 35.0-50.0 [facility] [id number] [address] [facility] [address] Mean Corpuscular Volume December 06, 2022 2:08pm 109.5 fl 80.0-100.0 [facility] [id number] [address] [facility] [address] Mean Corpuscular Hemoglobin December 06, 2022 2:08pm 35.5 pg 27.0-34.0 [facility] [id number] [address] [facility] [address] Mean Corpuscular Hemoglobin Concent December 06, 2022 2:08pm 32.4 g/dl 31.0-36.0 [facility] [id number] [address] [facility] [address] Red Cell Distribution Width December 06, 2022 2:08pm 12.1 % 11.5-15.0 [facility] [id number] [address] [facility] [address] Platelet Count December 06, 2022 2:08pm 105 X10 3/uL 150-400 [facility] [id number] 200 [facility] [place] [address] Immature Granulocyte % (Auto) December 06, 2022 2:08pm 0.4 % [facility] [id number] 200 [place] [address] Neutrophils (%) (Auto) December 06, 2022 2:08pm 60.0 % [facility] [id number] 200 [facility] [address] Lymphocytes (%) (Auto) December 06, 2022 2:08pm 17.6 % [facility] [id number] 200 [facility] [address] Monocytes (%) (Auto) December 06, 2022 2:08pm 19.3 % [facility] [id number] 200 [facility] [place] [address] Eosinophils (%) (Auto) December 06, 2022 2:08pm 2.1 % [facility] [id number] 200 [facility] [place] [address] Basophils (%) (Auto) December 06, 2022 2:08pm 0.6 % [facility] [id number] [address] [facility] [address] Immature Granulocyte # (Auto) December 06, 2022 2:08pm 0.02 X10 3/uL 0.00-0.09 [facility] [id number] [address] [facility] [address] Neutrophils # (Auto) December 06, 2022 2:08pm 2.9 X10 3/uL 1.5-7.8 [facility] [id number] [address] [facility] [address] Lymphocytes # (Auto) December 06, 2022 2:08pm 0.8 X10 3/uL 1.0-4.8 [facility] [id number] [address] [facility] [address] Monocytes # (Auto) December 06, 2022 2:08pm 0.9 X10 3/uL 0.0-0.8 [facility] [id number] [address] [facility] [address] Eosinophils # (Auto) December 06, 2022 2:08pm 0.1 X10 3/uL 0.0-0.5 [facility] [id number] [address] [facility] [address] Basophils # (Auto) December 06, 2022 2:08pm 0.0 X10 3/uL 0.0-0.2 [facility] [id number] [address] [facility] [address] Nucleated Red Blood Cells % December 06, 2022 2:08pm 0.0 /100 WBC 0.0-0.0 [facility] [id number] [address] [facility] [address] Sodium Level December 07, 2022 6:39am 141 mmol/L 137-146 [facility] [id number] [address] [facility] [address] Potassium Level December 07, 2022 6:39am 3.2 mmol/L 3.5-5.3 [facility] [id number] [address] [facility] [address] Chloride Level December 07, 2022 6:39am 103 mmol/L 98-107 [facility] [id number] [address] [facility] [address] Carbon Dioxide Level December 07, 2022 6:39am 26 mmol/L 23-32 [facility] [id number] [address] [facility] [address] Anion Gap December 07, 2022 6:39am 12 mmol/L 5-15 [facility] [id number] [address] [facility] [address] Blood Urea Nitrogen December 07, 2022 6:39am 6 mg/dl 5-25 [facility] [id number] [address] [facility] [address] Creatinine December 07, 2022 6:39am 0.5 mg/dL 0.6-1.4 [facility] [id number] [address] [facility] [address] Estimated Creatinine Clearance December 07, 2022 6:39am 90.7 ml/min This value is calculated by Cockcroft Gault Equation using ideal body weight. This result is dependent on an accurate patient height and weight which is obtained from patients medical record. Angeles BanksW. and M.HDane Guerra. Prediction of creatinine clearance from serum creatinine. Nephron. 1976. 16(1):31-41. [facility] [id number] [address] [facility] [address] Estimat Glomerular Filtration Rate December 07, 2022 6:39am 106 >90 Reported eGFR is based on the CKD-EPI 2020 equation that does not use a race coefficient. Additional information can be found at:10-22-8261 _icb_egfr_sum hcetna_an5.p df (kidney.org) [facility] [id number] [address] [facility] [address] BUN/Creatinine Ratio December 07, 2022 6:39am 12.0 10.0-20.0 [facility] [id number] [address] [facility] [address] Glucose Level December 07, 2022 6:39am 165 mg/dL 70-100 [facility] [id number] 200 [facility] [address] Calcium Level December 07, 2022 6:39am 9.1 mg/dl 8.6-10.3 [facility] [id number] 200 [facility] [address] Microbiology Results Procedure Source Result Collection Date/Time Result Date/Time Result Comment Performing Site Coronavirus COVID-19 (MADELINE) Nares, Both Left & Right December 07, 2022 11:08am [facility] [id number] [address] [place] [address] Diagnostic Imaging Reports Report Dictated Date/Time Dictated By Status Radiology Report December 06, 2022 12:57pm Abdon becker MD completed [address] [address] Patient Name: Nik Mathew Medical Record#: [id number] Address: [address] [place] [address] City/State/Zip: [place] [address]: Tremayne wolfe MD Insurance: Medicare A&B /Age/Sex: 1945//M [facility] Net - Secondary Admit/Reg Date: 12/06/[address]: Tremayne Trent MD Location: [place]/ PCP: Kaylin Mandujano MD Date of Service: 12/06/22 Order (s): CT hip LT wo contrast CPT Code: 62499 Report Number: [id number] Reason for Exam: fell PROCEDURE: CT hip [...] 10:19pm Insurance Providers Guarantor Nik Mathew Address [address] [place], [place] [address] Contact Info. Home Phone: Payer Policy Id Coverage Id Subscriber's Name Subscriber Id Effective Date Expiration Date Health Safety Net - Secondary [id number] Nik Mathew [id number] [employer] Medicare Advantage [id number] Nik Mathew [id number] Medicare A&B [id number] Nik Mathew [id number] Self Pay Self N/A Other Facility [phone] Nik Mathew [phone] Encounters Encounter Location(s) Arrival/Admit Date Discharge/Depart Date Provider(s) Discharged Inpatient [facility] December 06, 2022 4:31pm [...] Provider Address Kaylin Mandujano MD Work Phone: [address] [place] [address] [address] [facility] [address] Future Procedures Procedure Name Ordered Date Scheduled [...] progression as appropriate Safely transition to next [facility] care Patient/family has: - Appropriate access to resources and support services as applicable
--- OUTSIDE RECORDS SUMMARY | 2023-01-18 10:07 | XMS_ITS | Continuity of Care Document ---
Author Name Unknown Address [address] [place] [address] Phone [facility] Address [address] [place] [address] Phone Care Team Providers Care Golf Professional Name Role Phone MD [facility] Primary Care Provider MD [facility] Family Provider MD Tremayne Trent Emergency Provider [email or web address] MD Joce Arreola Attending Provider Chief Complaint and Reason for Visit Chief Complaint HIP FRACTURE Reason for Visit Contusion of left hi p Allergies, Adverse Reactions, Alerts No known allergies Social History Smoking Status Status Start Date End Date Date of Observa tion Ex-smoker (finding) October 25, 2019 5:59am Observation Status Observation Response Date of Response Lives With Sibling(s) December 06, 2022 4:50pm Living Situation Private Home December 06 4:50pm Additional Data Assigned Sex Male Family History [...] Falls Active Contusion of left hip Active Hypomagnesemia Active Inactive/Resolved Problems Medical Problem Onset Date Status Varicocele Resolved Scrotal pain Resolved Tachycardia Resolved Hypokalemia Resolved Medications Medication Status Dose Units Route Directions Qty Days St art Date End Date Instructions Acetaminophen Discontin ued 325 MG PO EVERY 4 HOURS [facility] 2017 1:00am December 05, 2018 1:37pm Thiamine Hcl (Vitamin B1) (Vitamin B-1) 100 MG Tablet Discontin ued 100 MG PO DAILY [facility] 2017 1:00am December 05, 2018 1:35pm Magnesium Oxide Discontin ued 400 MG PO TWICE A DAY 0 2017 1:00am 2019 12:57p m Erythromycin Discontin ued 1 APPL EACH EYE TWICE A DAY 1 5 2017 1:00am December 05, 2018 1:36pm Folic Acid Discontin ued 1 MG PO DAILY [facility] 2017 1:00am 2019 12:57p m Oxycodone Discontin ued 5 MG PO EVERY 4 HOURS 6 1 2017 1:00am December 05, 2018 1:34pm Multivitamin With Folic Acid (Thera) 1 TAB Tablet Discontin ued 1 TAB PO DAILY 2017 1:00am 2019 12:57p m Acetaminophen Active 650 MG PO EVERY 4 HOURS December 05, 2018 1:36pm Tramadol Discontin ued 50 MG PO ONCE DAILY AT BEDTIME December 05, 2018 12:00am 2019 12:57p m Celecoxib (Celebrex) 50 MG Capsule Discontin ued 50 MG PO DAILY December 12, 2018 12:00am 2019 12:57p m Magnesium Hydroxide Active 30 ML PO DAILY 2019 1:00am Bisacodyl Active 10 MG MD DAILY 2019 1:00am Pantoprazole Active 40 MG PO DAILY@0630 2019 1:00am Sodium Phosphates (Enema Disposable) 133 ML enema Active 133 ML MD DAILY 2019 1:00am Docusate Sodium (Dok) 100 MG capsule Active 100 MG PO TWICE A DAY y 2019 1:00am Oxycodone Active 5 MG PO EVERY 4 HOURS 15 y 2019 Medical Equipment Device Date Implanted Device Details [id number] SECUR-FIT MAX December 12, 2018 36MM/-2.518-36-3 C-TAPER BIOLO December 12, 2018 INSERT ACTB 36MM TRDNT 10D H December 12, 2018 SCREW BONE 16MM 6.5MM TRDNT December 12, 2018 SHELL ACTB 62MM TR PSL H HIP December 12, 2018 Procedures Procedure Date Performed Status CT hip LT wo contrast December 06, 2022 10:25am c ompleted XR femur LT 2V December 06, 2022 1:29pm active Coronavirus COVID-19 (MADELINE) activ e Relevant Diagnostic Tests and/or Laboratory Data Laboratory Results Test Date/Time Result Interpretation Reference Range Result Comment Performing Site White Blood Count December 06, 2022 2:08pm 4.8 X10 3/uL 4.5-11.0 [facility] [id number] 200 [facility] [address] Red Blood Count December 06, 2022 2:08pm 3.38 X10 6/uL 4.00-5.50 [facility] [id number] 200 [facility] [address] Hemoglobin December 06, 2022 2:08pm 12.0 g/dl 12.0-17.0 [facility] [id number] 200 [facility] [address] Hematocrit December 06, 2022 2:08pm 37.0 % 35.0-50.0 [facility] [id number] 200 [facility] [address] Mean Corpuscular Volume December 06, 2022 2:08pm 109.5 fl 80.0-100.0 [facility] [id number] 200 [facility] [address] Mean Corpuscular Hemoglobin December 06, 2022 2:08pm 35.5 pg 27.0-34.0 [facility] [id number] 200 [facility] [address] Mean Corpuscular Hemoglobin Concent December 06, 2022 2:08pm 32.4 g/dl 31.0-36.0 [facility] [id number] 200 [place] [address] Red Cell Distribution Width December 06, 2022 2:08pm 12.1 % 11.5-15.0 [facility] [id number] 200 [place] [address] Platelet Count December 06, 2022 2:08pm 105 X10 3/uL 150-400 [facility] [id number] 200 [place] [address] Immature Granulocyte % (Auto) December 06, 2022 2:08pm 0.4 % [facility] [id number] 200 [place] [address] Neutrophils (%) (Auto) December 06, 2022 2:08pm 60.0 % [facility] [id number] 200 [place] [address] Lymphocytes (%) (Auto) December 06, 2022 2:08pm 17.6 % [facility] [id number] 200 [place] [address] Monocytes (%) (Auto) December 06, 2022 2:08pm 19.3 % [facility] [id number] 200 [place] [address] Eosinophils (%) (Auto) December 06, 2022 2:08pm 2.1 % [facility] [id number] 200 [place] [address] Basophils (%) (Auto) December 06, 2022 2:08pm 0.6 % [facility] [id number] [address] [place] [address] Immature Granulocyte # (Auto) December 06, 2022 2:08pm 0.02 X10 3/uL 0.00-0.09 [facility] [id number] 200 [place] [address] Neutrophils # (Auto) December 06, 2022 2:08pm 2.9 X10 3/uL 1.5-7.8 [facility] [id number] 200 [place] [address] Lymphocytes # (Auto) December 06, 2022 2:08pm 0.8 X10 3/uL 1.0-4.8 [facility] [id number] 200 [facility] [address] Monocytes # (Auto) December 06, 2022 2:08pm 0.9 X10 3/uL 0.0-0.8 [facility] [id number] [address] [facility] [address] Eosinophils # (Auto) December 06, 2022 2:08pm 0.1 X10 3/uL 0.0-0.5 [facility] [id number] 200 [facility] [address] Basophils # (Auto) December 06, 2022 2:08pm 0.0 X10 3/uL 0.0-0.2 [facility] [id number] 200 [facility] [address] Nucleated Red Blood Cells % December 06, 2022 2:08pm 0.0 /100 WBC 0.0-0.0 [facility] [id number] 200 [facility] [address] Sodium Level December 06, 2022 2:08pm 142 mmol/L 137-146 [facility] [id number] 200 [facility] [address] Potassium Level December 06, 2022 2:08pm 3.2 mmol/L 3.5-5.3 [facility] [id number] 200 [facility] [address] Chloride Level December 06, 2022 2:08pm 102 mmol/L 98-107 [facility] [id number] 200 [facility] [address] Carbon Dioxide Level December 06, 2022 2:08pm 30 mmol/L 23-32 [facility] [id number] 200 [facility] [address] Anion Gap December 06, 2022 2:08pm 10 mmol/L 5-15 [facility] [id number] 200 [facility] [address] Blood Urea Nitrogen December 06, 2022 2:08pm 8 mg/dl 5-25 [facility] [id number] 200 [facility] [address] Creatinine December 06, 2022 2:08pm 0.6 mg/dL 0.6-1.4 [facility] [id number] 200 [facility] [address] Estimated Creatinine Clearance December 06, 2022 2:08pm 90.7 ml/min This value is calculated by Cockcroft Gault Equation using ideal body weight. This result is dependent on an accurate patient height and weight which is obtained from patients medical record. HomeroofAngeles khouryW. and M.H. Gault. Prediction of creatinine clearance from serum creatinine. Nephron. 1976. 16(1):31-41. [facility] [id number] 200 [facility] [address] Estimat Glomerular Filtration Rate December 06, 2022 2:08pm 100 >90 Reported eGFR is based on the CKD-EPI 2020 equation that does not use a race coefficient. Additional information can be found at:10-22-8261 _icb_egfr_sum chetna_joieer5.p df (kidney.org) [facility] [id number] 200 [facility] [address] BUN/Creatinine Ratio December 06, 2022 2:08pm 13.3 10.0-20.0 [facility] [id number] 200 [facility] [address] Glucose Level December 06, 2022 2:08pm 120 mg/dL 70-100 [facility] [id number] [address] [place] [address] Calcium Level December 06, 2022 2:08pm 9.5 mg/dl 8.6-10.3 [facility] [id number] [place] [address] Diagnostic Imaging Reports Report Dictated Date/Time Dictated By Status Radiology Report December 06, 2022 12:57pm Abdon becker MD completed [address] [address] Patient Name: Nik Mathew Medical Record#: [id number] Address: [address] [place] [address] City/State/Zip: [place] [address]: Tremayne wolfe MD Insurance: Medicare A&B /Age/Sex: 1945/77/M [facility] Net - Secondary Admit/Reg Date: 12/06/[address]: Tremayne Trent MD Location: [place]/ PCP: Kaylin Mandujano MD Date of Service: 12/06/22 Order (s): CT hip LT wo contrast CPT Code: 23119 Report Number: [id number] Reason for Exam: fell PROCEDURE: CT hip [...] 12/06/22 1314 TD/TT: 12/06/22 1257Tech: [id number] cc: MARLENA[facility] Kaylin Mandujano MD; Tremayne Trent MD Vital Signs Vital Reading Result Reference Range Collection Date/Time Height 190.5 cm December 06 10:03am Weight 81.64 kg December 06 10:03am Body Temperature 97.9 [degF] 97.6-99.6 December 06, 2022 10:03am Heart Rate 78 /min 60-90 December 06 5:24pm Respiratory rate 18 /min 12-24 December 06, 2022 5:24pm Oxygen saturation by Pulse oximetry 99 % 95-100 December 06, 2022 5:2 4pm BP Systolic 148 mm[Hg] 90-140 December 06 5:24pm BP Diastolic 72 mm[Hg] 60-90 December 06 5:24pm BMI (Body Mass Index) 22.5 kg/m2 December 06, 2022 10:03am Advance Directives Advance Directive Response Recorded Date/ Time Advance Directives No December 06 023 10:06am Health Care Proxy No December 06 10:06am Pt has Medical Orders for Li fe Sustaining Tx Form (MOLST)? No October 24, 2019 10:19pm Insurance Providers Guarantor Nik Quincy Address [address] [facility] [address] Contact Info. Home Phone: Payer Policy Id Coverage Id Subscriber's Name Subscriber Id Effective Date Expiration Date Health Safety Net - Secondary [id number] Nik Membrenoissa [id number] [employer] Medicare Advantage [id number] Nik Membrenoissa [id number] Medicare A&B [id number] Nik Mathew [id number] Self Pay Self N/A Other Facility [phone] [phone] Nik Garrisonisak [id number] Encounters Encounter Location(s) Arrival/Admit Date Discharge/Depart Date Provider(s) Admitted Inpatient [facility] December 06, 2022 5:31pm Joce Arreola MD Recent Diagnosis Onset Date Contusion of left hip Functional Status Observation Response Date Recorded Ambulation Distance 5 December 06, 2022 4:50pm Ambulation Tolerance Poor December 06, 2022 4:50pm Mental Status Observation Response Date Recorded Arousable To Normal for Patient December 06 023 4:50pm Assessments Diagnosis Onset Date Resolution Status Contusion of left hip acute Plan of Treatment Future Tests Future scheduled test information is unavailable Pending Tests Test Name Ordered Date Scheduled Date Coronavirus COVID-19 MADELINE (RODRIGO) December 06, 2022 4:46pm XR femur LT 2V December 06, 2022 1:29pm December 062022 1:29pm VTE Risk Assessment Medical December 06, 2022 4:3 1pm December 06, 2022 4:31pm Future Visits Future appointment information is unavailable Referrals to Other Providers Referral information is unavailable Future Procedures Procedure Name Ordered Date Scheduled Date Hospital Level of Care December 06, 2022 4:31pm [facility] 2022 4:31pm Physical Therapy Consult December 06, 2022 1:29pm December 06, 2022 1:29pm Activity December 06, 2022 4:31pm December 062022 4:31pm Case Management Consult December 06, 2022 1:29pm December 06, 2022 1:29pm Code Status December 06, 2022 4:31pm December 062022 4:31pm Peripheral IV Insert/Manage December 06, 2022 4:3 [...]
--- OUTSIDE RECORDS SUMMARY | 2023-01-18 10:07 | XMS_ITS | Continuity of Care Document ---
Author Name Unknown Address [address] [place] [address] Phone [facility] Address [address] [place] [address] Phone Support Name Relationship Address Phone EILEEN HIGGINS Sister [address] [place] [address] Kaylin Mandujano Primary Care Provider [address] [place] [address] Rd [address] [place] [address] Older, [place] [address] Allergies, Adverse Reactions, Alerts No known allergies. Medications Medication Status Dose Units Route Sig Qty Days Start Date End Date Instructions Acetaminophen Discontinu ed 325 MG Oral EVERY 4 HOURS August 22, 2018 2:11pm December 05, 2018 1:37pm Erythromycin Ophth Oint Discontinu ed 1 APPL Each Eye TWICE A DAY 1 5 August 22, 2018 2:11pm December 05, 2018 1:36pm Folic Acid Discontinu ed 1 MG Oral DAILY August 22, 2018 2:11pm October 01, 2019 11:57am Magnesium Oxide Discontinu ed 400 MG Oral TWICE A DAY 0 August 22, 2018 2:11pm October 01, 2019 11:57am Multivitamin Discontinu ed 1 TAB Oral DAILY August 22, 2018 2:11pm October 01, 2019 11:57am Oxycodone Discontinu ed 5 MG Oral EVERY 4 HOURS 6 1 August 22, 2018 2:11pm December 05, 2018 1:34pm Thiamine Discontinu ed 100 MG Oral DAILY August 22, 2018 2:11pm December 05, 2018 1:35pm Acetaminophen Active 650 MG Oral EVERY 4 HOURS December 05, 2018 1:36pm Tramadol Discontinu ed 50 MG Oral ONCE DAILY AT BEDTIM E December 05, 2018 1:37pm October 01, 2019 11:57am Celecoxib Discontinu ed 50 MG Oral DAILY December 12, 2018 8:06am October 01, 2019 11:57am Bisacodyl Suppository Active 10 MG Rectal DAILY October 25, 2019 10:45am Docusate Sodium Active 100 MG Oral TWICE A DAY October 25, 2019 10:45am Sodium Phos Enema Active 133 ML Rectal DAILY October 25, 2019 10:45am Magnesium Hydroxide Active 30 ML Oral DAILY October 25, 2019 10:45am Oxycodone Active 5 MG Oral EVERY 4 HOURS 15 October 25, 2019 10:45am Pantoprazole Active 40 MG Oral DAILY@ 0630 October 25, 2019 10:45am Problems Active Problems [...] ompleted Relevant Diagnostic Tests and/or Laboratory Data Diagnostic Imaging Reports Report Dictated Date/Time Dictated By Status Radiology Report October 24, 2019 11:02am Aleksandr De La Cruz MD completed [address] [address] Patient Name: Nik Melchor Medical Record#: [id number] Address: [address] [place] [address] City/State/Zip: [place] [address]: Remington garland MD Insurance: Medicare A&B /Age/Sex: 1945/74/M [facility] - Secondary Admit/Reg Date: 10/24/[address]: Remington Romero MD Location: ED.[place]/ PCP: Kaylin Mandujano MD Date of Service: 10/24/19 Order (s): XR hip pelvis LT min 2V CPT Code: 03771 Report Number: [id number] Reason for Exam: thigh pain with history of hip replacement PROCEDURE: XR hip pelvis LT min 2V REASON FOR STUDY: thigh pain with history of hip replacement ADDITIONAL CLINICAL HISTORY: None COMPARISON: Films of 10/02/2019 PELVIS SINGLE VIEW AND LEFT HIP 2 VIEWS: FINDINGS: An AP view the pelvis and 2 views of the hip were obtained.. There is a left total hip arthroplasty. There is an incomplete fracture of the shaft of the femur at the level of the distal stem of the prosthesis. The appearance of the hardware is without change. There are degenerative changes in the right hip joint and visualized lumbar spine. IMPRESSION: INCOMPLETE FRACTURE OF THE SHAFT OF THE FEMUR AT THE LEVEL OF THE DISTAL STEM OF THE PROSTHESIS. RESULTS WERE DISCUSSED WITH THE ED AT 11:00 AM. Dictated By: Aleksandr De La Cruz MD 10/24/191101 Signed By: Aleksandr De La Cruz MD 10/24/191102 TD/TT: 10/24/19 110Tech: [id number] cc: MARLENA; BURTON* Kaylin Mandujano MD; Remington Romero MD Electrocardiogram October 24, 2019 5:28pm Remington Romero MD completed [address] [address] Patient Name: Nik Melchor Medical Record#: [id number] Address: [address] [place] [address] City/State/Zip: [place] [address]: Codie zabala MD Insurance: [employer] Medicare Ad vantage /Age/Sex: 1945/74/M [facility] - Secondary Admit/Reg Date: 10/24/[address]: Jesus Friedman MD Location: [address] [place] [address] PCP: Kaylin Mandujano MD Date of Service: 10/24/19 Order (s): EKG ED Electrocardiogram CPT Code: 22031 Report Number: [id number] Reason for Exam: fall sinus tachycardia with a rate of 109. [place] is -14 degrees. 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 IB REMINGTON ROMERO MD REF PDOC Dictated By: Remington Romero MD 10/24/191727 Signed By: Remington Romero MD 11/05/19 1406 TD/TT: 10/24/191727Tech: [email or web address] cc: BRADLEY MANRIQUE* Kaylin Mandujano MD; Remington Romero MD Radiology Report February 19, 2020 3:22pm Cristina Cortés MD completed [address] [address] Patient Name: Nik Melchor Medical Record#: [id number] Address: [address] [place] [address] City/State/Zip: [place] [address]: Ruben Menendez MD Insurance: [facility] Medicare Ad vantage /Age/Sex: 1945/74/M [facility] - Secondary Admit/Reg Date: 02/19/[address]: Ruben Menendez MD Location: DI.[place]/ PCP: Kaylin Mandujano MD Date of Service: 02/19/20 Order (s): XR barium swallow (esophagram) CPT Code: 53293 Report Number: [id number] Reason for Exam: DYSPHAGIA EXAM: XR barium [...] communicated to Ruben Menendez MD via the [employer] system on 02/19/2020 3:34 PM, Message ID [id number]. Dictated By: Cristina Cortés MD 02/19/20 1522 Signed By: Cristina Cortés MD 02/19/20 1534 TD/TT: 02/19/20 1522Tech: [id number] cc: MARLENA; [email or web address]* Kaylin Mandujano MD; Ruben Menendez MD Advance Directives Advance Directive Response Recorded Date/ Time Pt has Medical Orders for Li fe Sustaining Tx Form (MOLST)? No October 24, 2019 9:19pm Chief Complaint and Reason for Visit Chief Complaint [facility] Encounters Encounter Location(s) Arrival/Admit Date Discharge/Depart Date Provider(s) Discharged Inpatient [facility] October 24, 2019 10:26pm October 25, 2019 1:50pm Codie Mcghee MD Departed Clinical [facility]-Xray February 19, 2020 11:25am February 19, 2020 11:26am Ruben Menendez MD Assessments No Assessments Information Available Family History Relationship Condition Age at Onset Recorded Date/T selwyn father Malignant neoplasm Unknown Functional Status No Functional Status information available Goals Goals may be documented in an alternate section. Mental Status No Mental Status Information Available Medical Equipment Implanted Devices Device Date Implanted Device Details [id number] SECUR-FIT MAX December 12, 2018 U DI: 36MM/-2.518-36-3 C-TAPER BIOLO December 12, 2018 U DI: INSERT ACTB 36MM TRDNT 10D H December 12, 2018 KEM : SCREW BONE 16MM 6.5MM TRDNT December 12, 2018 KEM: SHELL ACTB 62MM TR PSL H HIP December 12, 2018 KEM : Insurance Providers Guarantor Nik Melchor Address [address] [place] [id number] Contact Info. Home Phone: Payer Policy Id Coverage Id Subscriber's Name Subscriber Id Effective Date Expiration Date Health Safety Net - Secondary [id number] NIK MELCHOR [id number] [employer] Medicare Advantage [id number] NKI RUIZ [id number] Medicare A&B [id number] NIK MELCHOR [id number] Self Pay Self N/A Other Facility [phone] NIK MELCHOR Social History Smoking Status Status Date of Observation Ex-smoker (finding) October 25, 2019 5:59am Observation Status Observation Response Date of Response Lives With Sibling(s) October 25 5:59am Assigned Sex Male
[2023-01-18] MEDS: MAGNESIUM SULFATE 2 GM/50 ML BAG IVPB (10:41)
[2023-01-18] MEDS: Normal Saline 500 ML IV (10:41)
[2023-01-18] MEDS: Doxycycline Hyclate 100 MG CAP PO (12:14)
== END 2023-01-18 12:16 | disposition home or self-care (01) ==
PROVIDERS: Physician Assistant; Emergency Provider Emergency Medicine
DX: E83.42 Hypomagnesemia (principal); F10.129 Alcohol abuse with intoxication, unspecified; D69.6 Thrombocytopenia, unspecified; I44.0 Atrioventricular block, first degree; D53.9 Nutritional anemia, unspecified; R91.8 Other nonspecific abnormal finding of lung field; Z23 Encounter for immunization; Z96.642 Presence of left artificial hip joint; S51.011A Laceration without foreign body of right elbow, initial encounter; X58.XXXA Exposure to other specified factors, initial encounter; J18.9 Pneumonia, unspecified organism
CPT/HCPCS: 36415; 74177; 80053; 80307; 83690; 90471; 93005; 96361; 96365; 96366; 99285; 70450; 71260; 72125; 80180; 80197; 80320; 81003; 83735; 84484; 85025; 93010; 99284